=== PATIENT | male | born 1990 | race Caucasian/White ===

== ENCOUNTER 2019-11-15 20:06 | Emergency (ER) | payer OTHER, SELFPAY ==
[2019-11-15 20:14] VITALS: BP 147/87; PULSE 89; RESP 14; TEMP 37.1; O2SAT 97; BMI 22.9
[2019-11-15 20:29] VITALS: BP 148/83; PULSE 76; RESP 18; O2SAT 98
[2019-11-15 20:42] VITALS: BP 132/84; PULSE 88; RESP 18; O2SAT 99
--- NOTE | 2019-11-15 21:16 | HMH.EDDENT ---
ED Disposition Clinical Impression: Dental caries, Toothache Disposition: Home, Self-Care Condition on Discharge: Good Instructions: DI for Dental Pain Additional Instructions: see pcp for follow up and dentist Prescriptions: Minocycline HCl [Minocycline HCl 100mg Tab*] 100 mg PO BID #20 tab Transmission Status: Pending to [facility] #[id number] Referrals: Provider,Referral, [Primary Care Provider] - - Critical Care Critical Care Time: No Attestation: On 11/15/19, the high probability of a clinically significant, sudden or life threatening deterioration of the following system(s) required my full and direct attention, intervention and personal management. The time I documented below is in addition to time spent performing reported procedures but includes the following listed in this critical care notation. Medical Decision Making - Medical Records Medical records reviewed: Yes: I reviewed the patient's medical records. - Rajinder Inquiry Pt receiving controlled substance: No Vital Signs: 11/15/19 20:14 11/15/19 20:29 11/15/19 20:42 Temperature 98.7 F Temperature Source Oral Pulse Rate [Right Brachial] 89 76 88 Respiratory Rate 14 18 18 Blood Pressure [Right Arm] 147/87 H 148/83 H 132/84 Blood Pressure Mean [Right Arm] 107 104 100 Blood Pressure Source [Right Arm] Automatic Cuff Blood Pressure Position [Right Arm] Sitting 02 Sat by Pulse Oximetry 97 98 99 Oxygen Delivery Method Room Air Room Air Room Air Orders (Tests/Meds): ED MEDICATIONS Discontinued Medications Generic Name Dose Route Start Last Admin Trade Name Robertq PRN Reason Stop Dose Admin Ibuprofen 800 mg 11/15/19 21:01 11/15/19 21:04 Motrin 400mg Tablet PO 11/15/19 21:02 800 mg ONCE ONE Administration Lidocaine HCl 15 ml 11/15/19 20:45 11/15/19 20:48 Lidocaine 2% Viscous Solution 15ml Udc PO 11/15/19 20:46 15 ml ONCE ONE Administration Dental HPI - General Chief complaint: Dental/Oral Stated complaint: Fever, infected tooth Time Seen by Provider: 11/15/19 20:25 Mode of Arrival: Ambulatory Source of Information: Patient, Medical Record Limitations: No Limitations Description of Symptoms (Recalled from ER Triage Doc. by RN): PATIENT REPORTS A TOOTH ACHE IN HIS LEFT BOTTOM MOLAR THAT STARTED 4 DAYS AGO AND HIS NOW CAUSING HIM TO HAVE A HEADACHE. PATIENT REPORTS HE HAS NOT CONTACTED HIS DENTIST AT ALL ABOUT IT OR TAKEN ANY MEDICATION FOR THE TAM/PAIN. - History of Present Illness HPI Narrative: infected lt lower tooth with jaw pain and swelling Complaint: tooth pain Onset (ago): day(s) Severity: moderate Context: history of dental caries, poor dental care Treatment prior to arrival: none - Related Data Previous Rx's Medication Instructions Recorded cephALEXin [Keflex 500mg Cap] 500 mg PO TID #30 cap 04/27/19 Nabumetone 750 mg PO BID #20 tab 08/09/19 Minocycline HCl [Minocycline HCl 100 mg PO BID #20 tab 11/15/19 100mg Tab*] Allergies Allergy/AdvReac Type Severity Reaction Status Date / Time No Known Allergies Allergy Verified 04/27/19 22:01 [facility] History - Hepatitis A Screen Drug use history?: No High risk sexual behaviors?: No History of sexually transmitted infection?: No Currently employed?: No Childcare worker?: No Do you have indoor plumbing?: Yes Do you have electricity?: Yes Attestation statement:: This patient has been screened for Hepatitis A risk factors. I have reviewed the patient's past medical history: Yes - Social History Smoking Status: Current every day smoker # Packs/Day (cigarettes): 1 Alcohol Intake: never Alcohol Intake Frequency:: holidays/special occasions only Occupational Status: employed ROS Obtained: Yes All systems reviewed & no additional complaints - Constitutional Constitutional: Denies fever(s) - Eyes Eyes: Denies change in vision - ENT Ears, Nose, Mouth, and Throat: Reports as per HPI, Reports den
[2019-11-15 21:35] VITALS: BP 162/75; PULSE 84; RESP 14; TEMP 37.1; O2SAT 99
== END 2019-11-15 21:37 | disposition home or self-care (01) ==
PROVIDERS: Emergency Provider Emergency Medicine
DX: K02.9 Dental caries, unspecified (principal); F17.210 Nicotine dependence, cigarettes, uncomplicated
CPT/HCPCS: 99282

== ENCOUNTER 2021-06-28 10:48 | Emergency (ER) | payer OTHER, SELFPAY ==
[2021-06-28 10:49] VITALS: BP 130/82; PULSE 79; RESP 18; TEMP 36.9; O2SAT 99; BMI 22.2
--- NOTE | 2021-06-28 11:18 | HMH.EDGENADL ---
ED Disposition Clinical Impression: Corneal foreign body Qualifiers: Encounter type: initial encounter Laterality: right Qualified Code(s): T15.01XA - Foreign body in cornea, right eye, initial encounter Corneal rust ring Qualifiers: Laterality: right Qualified Code(s): H18.891 - Other specified disorders of cornea, right eye Disposition: Home, Self-Care Condition on Discharge: Good Instructions: DI for Corneal Foreign Body-Eye Additional Instructions: Use erythromycin ointment in your right eye 4 times a day. Rest in a dark room to relieve pain. [place] as prescribed for pain. Follow-up with [facility] on Wednesday, call Wednesday morning at 9 AM to make that appointment. Dr. Fisher, Dr. Francois, [place] [id number] Additional instructions for EYE PAIN or INJURY: Return to the emergency department if severe pain, loss of vision, pus drainage, severe swelling or redness of eyelids. Additional instructions for CONTROLLED SUBSTANCES: You have been prescribed a medication that is a controlled substance. Controlled substances include pain medications known as opiates and sedative nerve medications known as benzodiazepines. Tramadol, fioricet, and gabapentin are also controlled substances. Some common opiates include: Codeine (such as Tylenol #3) Hydrocodone (Vicodin, Lortab, Lorcet, Princeton) Oxycodone (Percocet, Percodan, Oxycodone, Oxy IR) Some common benzodiazepines include: Diazepam (Valium) Lorazepam (Ativan) Alprazolam (Xanax) Clonazepam (Klonopin) Oxazepam (Serax) All of these controlled substances are highly addictive and frequently abused. Misuse can and frequently does lead to addiction as well as overdose and . Medication should be stored in a locked cabinet or other secure storage unit. Do not store the medication in a motor vehicle. Short term supplies, 3 days or less, are prescribed because of the highly addictive nature of the medication. Any of the controlled substance medication NOT taken should be disposed of properly and NOT SAVED. The recommended method of disposing of unused medications is: Place the medicines in a sealable plastic bag. If the medicine is a solid, crush it or add water to dissolve it. Add something undesirable (cat litter, coffee grounds, etc.) Dispose of sealed bag in household trash Do not flush or pour unused medicines down a sink or drain. Controlled substances should not be shared, given away or sold. Because of the addictive nature and frequent abuse, these medications are sometimes stolen. These medications should be kept in a safe place where they cannot be stolen. Do not keep them in your car or purse. Lost or stolen prescriptions for controlled substances WILL NOT BE REFILLED in this emergency department, regardless of whether a police report was filed. Prescriptions: Hydrocod/Acet 5/325 mg [[place] 5/325mg tablet] 1 tab PO Q6HP PRN #10 tab PRN Reason: Pain Transmission Status: Sent to [id number] Referrals: Provider,Referral, MD [Primary Care Provider] - Forms: Work/School Release - Critical Care Critical Care Time: No Attestation: On 06/28/21, the high probability of a clinically significant, sudden or life threatening deterioration of the following system(s) required my full and direct attention, intervention and personal management. The time I documented below is in addition to time spent performing reported procedures but includes the following listed in this critical care notation. Medical Decision Making - Rajinder Inquiry Pt receiving controlled substance: Yes Rajinder was queried for this patient: Yes Risks and benefits of using a controlled substance: were discussed with pt by me Vital Signs: 06/28/21 10:49 Temperature 98.4 F Temperature Source Oral Pulse Rate [Right Radial] 79 Respiratory Rate 18 Blood Pressure [Right Arm] 130/
--- NOTE | 2021-06-28 11:28 | PC.NURSE ---
pt back from CT scan
[2021-06-28 11:42] VITALS: BP 128/79; PULSE 78; RESP 14; TEMP 36.7; O2SAT 97
== END 2021-06-28 11:42 | disposition home or self-care (01) ==
PROVIDERS: Emergency Provider Emergency Medicine
DX: T15.01XA Foreign body in cornea, right eye, initial encounter (principal); W45.8XXA Other foreign body or object entering through skin, initial encounter; Y92.69 Other specified industrial and construction area as the place of occurrence of the external cause; Y99.0 Civilian activity done for income or pay; F17.210 Nicotine dependence, cigarettes, uncomplicated
CPT/HCPCS: 65220; 99282

== ENCOUNTER 2021-12-11 08:47 | Emergency (ER) | payer MEDICAID, SELFPAY ==
[2021-12-11 08:48] VITALS: BP 139/74; PULSE 72; RESP 15; TEMP 36.8; O2SAT 99; BMI 25.1
[2021-12-11 08:55] VITALS: BMI 25.1
[2021-12-11 09:00] VITALS: BP 126/74; PULSE 68; O2SAT 98
--- NOTE | 2021-12-11 09:05 | HMH.EDGENADL ---
ED Disposition Clinical Impression: Viral syndrome Disposition: Home, Self-Care Condition on Discharge: Good Instructions: DI for Viral Syndrome, DI for COVID-19 (Suspected or Confirmed ) Additional Instructions: follow up as needed, return for worse Referrals: Provider,Referral, [Primary Care Provider] - - Critical Care Critical Care Time: No Attestation: On 12/11/21, the high probability of a clinically significant, sudden or life threatening deterioration of the following system(s) required my full and direct attention, intervention and personal management. The time I documented below is in addition to time spent performing reported procedures but includes the following listed in this critical care notation. Medical Decision Making - Medical Records Medical records reviewed: Yes: I reviewed the patient's medical records. - Rajinder Inquiry Pt receiving controlled substance: No Vital Signs: 12/11/21 08:48 12/11/21 09:00 12/11/21 09:30 Temperature 98.2 F Temperature Source Oral Pulse Rate 68 64 Pulse Rate [Right Radial] 72 Respiratory Rate 15 Blood Pressure 126/74 127/71 Blood Pressure [Right Arm] 139/74 Blood Pressure Mean 91 93 Blood Pressure Mean [Right Arm] 95 Blood Pressure Source [Right Arm] Automatic Cuff Blood Pressure Position [Right Arm] Sitting 02 Sat by Pulse Oximetry 99 98 97 Oxygen Delivery Method Room Air - Lab Data Lab Results 12/11/21 08:55: SARS-CoV-2 (PCR) Not detected, Influenza A Untype (PCR) Not detected, Influenza Type B (PCR) Not detected General Adult HPI - General Chief complaint: Weakness Stated complaint: bodyaches, feverish, nausea, TAM Time Seen by Provider: 12/11/21 09:05 Mode of Arrival: Ambulatory Limitations: No Limitations Description of Symptoms (Recalled from ER Triage Doc. by RN): Pt c/o bodyaches, fever, TAM and nausea for a few days. - History of Present Illness HPI narrative: flu like symptoms 3 days covid exposure Onset (ago): day(s) Radiation: non-radiation Severity: moderate Consistency: constant, intermittent Relieving factors: none Exacerbating factors: none - Related Data Previous Rx's Medication Instructions Recorded cephALEXin [Keflex 500mg Cap] 500 mg PO TID #30 cap 04/27/19 Nabumetone 750 mg PO BID #20 tab 08/09/19 Minocycline HCl [Minocycline HCl 100 mg PO BID #20 tab 11/15/19 100mg Tab*] Hydrocod/Acet 5/325 mg [[place] 1 tab PO Q6HP PRN #10 tab 06/28/21 5/325mg tablet] Allergies Allergy/AdvReac Type Severity Reaction Status Date / Time No Known Allergies Allergy Verified 04/27/19 22:01 [facility] History - Hepatitis A Screen Attestation statement:: This patient has been screened for Hepatitis A risk factors. - Social History Smoking Status: Current every day smoker # Packs/Day (cigarettes): 1 Alcohol Intake: never Alcohol Intake Frequency:: holidays/special occasions only Occupational Status: employed ROS Obtained: Yes All systems reviewed & no additional complaints Physical Exam - General General appearance: alert, in no apparent distress - Head Head exam: atraumatic, normocephalic - Eye Eye exam: Present: normal appearance, PERRL, EOMI - ENT ENT exam: Present: normal exam, normal oropharynx, mucous membranes moist - Neck Neck exam: Present: normal inspection, full ROM - Chest Chest inspection: Present: normal inspection, symmetric chest wall rise - Respiratory Respiratory exam: Present: normal lung sounds bilaterally. Absent: respiratory distress, wheezes - Cardiovascular Cardiovascular exam: Present: regular rate, normal rhythm. Absent: tachycardia - Abdominal Exam Abdominal exam: Present: soft. Absent: tenderness, guarding - Extremities Exam Extremities exam: Present: normal inspection, full ROM, normal capillary refill - Back Exam Back exam: Present: normal inspection, full ROM. Absent: tenderness - Neurological Exam Neurological ex
[2021-12-11 09:07] LABS: Coronavirus 19, PCR Not Detected (NotDetected); Influenza A, PCR Not Detected (NotDetected); Influenza B, PCR Not Detected (NotDetected)
[2021-12-11 09:30] VITALS: BP 127/71; PULSE 64; O2SAT 97
[2021-12-11 09:55] VITALS: BP 132/70; PULSE 79; RESP 16; TEMP 36.8; O2SAT 98
== END 2021-12-11 09:58 | disposition home or self-care (01) ==
PROVIDERS: Emergency Provider Emergency Medicine
DX: B34.9 Viral infection, unspecified (principal)
CPT/HCPCS: 99212; C9803; G0463; U0003; U0005

== ENCOUNTER 2022-02-14 18:27 | Emergency (ER) | payer MEDICAID, SELFPAY ==
[2022-02-14 18:28] VITALS: BP 133/85; PULSE 69; RESP 16; TEMP 36.8; O2SAT 99; BMI 24.3
--- NOTE | 2022-02-14 18:42 | CT_ITS ---
PROCEDURE INFORMATION: Exam: CT Abdomen And Pelvis With Contrast Exam date and time: 02/14/2022 6:55 PM Age: 32 years old Clinical indication: Abdominal pain; Generalized; Additional info: Rlq pain TECHNIQUE: Imaging protocol: Computed tomography of the abdomen and pelvis with contrast. Radiation optimization: All CT scans at this facility use at least one of these dose optimization techniques: automated exposure control; mA and/or kV adjustment per patient size (includes targeted exams where dose is matched to clinical indication); or iterative reconstruction. Contrast material: ISOVUE; Contrast volume: 75 ml; Contrast route: IV; COMPARISON: No relevant prior studies available. FINDINGS: Lungs: The visualized lung bases are clear. Pleural spaces: There are no pleural effusions. Heart: The visualized portions of the heart are unremarkable. There is no evidence of pericardial fluid collections. Liver: There is diffuse decrease in hepatic parenchymal density consistent with fatty infiltration. Gallbladder and bile ducts: The gallbladder is contracted/decompressed. Pancreas: The pancreas is normal. Spleen: The spleen is normal. Adrenal glands: The adrenal glands are normal. Kidneys and ureters: The kidneys are normal. Stomach and bowel: The stomach is normal. The duodenum is unremarkable. Lack of gastrointestinal contrast limits evaluation of bowel. The colon is normal. There is mild mucosal enhancement involving scattered loops of centrally located small bowel without dilatation. There is minor mural thickening. Findings are nonspecific but may reflect enteritis. Distal loops of small bowel are normal caliber. The distal ileum appears normal. Proximal jejunum appears normal. Appendix: A normal appendix is identified. Intraperitoneal space: There is no evidence of free intraperitoneal or pelvic fluid. No free air. Vasculature: There is no evidence of an aortic aneurysm. There are a few benign phleboliths in the pelvis. Lymph nodes: There is no evidence of pathologic adenopathy. Urinary bladder: The bladder is decompressed. Reproductive: The prostate and seminal vesicles are normal. Bones/joints: There is no evidence of acute fracture. There is very slight retrolisthesis of L5 on S1. Soft tissues: No significant soft tissue edema. IMPRESSION: 1. Mild mucosal enhancement involving scattered loops of centrally located small bowel with minor mural thickening and without dilatation. Findings are nonspecific but may reflect enteritis. Other inflammatory/infiltrative processes are not excluded. Correlate clinically. 2. Fatty hepatic infiltration.
--- NOTE | 2022-02-14 18:46 | HMH.EDABDPAI ---
Discharge Plan Disposition Patient Disposition: Home, Self-Care Condition: Fair Prescriptions Prescriptions: New ciprofloxacin HCl [Cipro] 500 mg tablet 500 mg PO BID Qty: 20 0RF metronidazole 500 mg tablet 500 mg PO BID 10 Days Qty: 20 0RF No Action nabumetone 750 MG tablet 750 mg PO BID Qty: 20 0RF cephalexin 500 MG capsule 500 mg PO TID Qty: 30 0RF minocycline 100 MG tablet 100 mg PO BID Qty: 20 0RF hydrocodone-acetaminophen 1 TAB tablet 1 tab PO Q6HP PRN (Reason: Pain) Qty: 10 0RF Referrals Follow up/Referrals: Provider,Referral, MD [Primary Care Provider] - See instructions Activity Restrictions/Add. Instructions Additional Instructions/Restrictions: Because you have blood in your stool, you will need a colonoscopy. I strongly advise you to follow-up with your primary care doctor and try to schedule a colonoscopy within the next month. Do this even if you stop feeling badly. Return to the emergency department if you feel worse in any way. Clinical Impressions Clinical Impression: Abdominal pain, Enteritis Instructions Patient Instructions: DI for Acute Abdominal Pain, Gastrointestinal Bleeding Discharge ED Provider: Ebonie Cuevas Abdominal Pain HPI General Chief Complaint: Abdominal Pain Stated Complaint: right side abd pain,blood in stool Time Seen by Provider: 02/14/22 18:46 Mode of Arrival: Ambulatory Source of Information: Patient Limitations: No Limitations Description of Symptoms (Recalled from ER Triage Doc. by RN): to ed per pvt car with c/o rlq pain radiating around to back x 2-3 days with 3 episodes of bright red blood in stool with black clots. pt denies any nausea, vomiting, fever, chills. History of Present Illness HPI narrative: The patient presents to the emergency department complaining of right lower quadrant pain for the last 2 or 3 days radiating to the back and associated with hematochezia without any nausea vomiting or diarrhea. He also denies fevers. Related Data Previous Rx's Medication Instructions Recorded cephalexin 500 mg capsule 500 mg PO TID #30 caps 04/27/19 nabumetone 750 mg tablet 750 mg PO BID #20 tabs 08/09/19 minocycline 100 mg tablet 100 mg PO BID #20 tabs 11/15/19 hydrocodone 5 mg-acetaminophen 325 1 tab PO Q6HP PRN Pain #10 tabs 06/28/21 mg tablet ciprofloxacin HCl 500 mg tablet 500 mg PO BID #20 tabs 02/14/22 (Cipro) metronidazole 500 mg tablet 500 mg PO BID 10 days #20 tabs 02/14/22 Allergies Allergy/AdvReac Type Severity Reaction Status Date / Time No Known Allergies Allergy Verified 04/27/19 22:01 [facility] Social History Smoking Status: Current every day smoker alcohol intake: never current occupational status: employed Travel in the last 8 weeks: None ROS Obtained: Yes All systems reviewed & no additional complaints except as documented Physical Exam General General appearance: alert and in no apparent distress Head Head exam: atraumatic, normocephalic and normal inspection Eye Eye exam: Present normal appearance, PERRL and EOMI; Absent scleral icterus ENT ENT exam: Present normal exam, normal oropharynx, mucous membranes moist, TM's normal bilaterally and normal external ear exam Neck Neck exam: Present normal inspection, full ROM and trachea midline; Absent meningismus or lymphadenopathy Chest Chest inspection: Present normal inspection and symmetric chest wall rise; Absent tenderness Respiratory Respiratory exam: Present normal lung sounds bilaterally; Absent respiratory distress Cardiovascular Cardiovascular exam: Present regular rate and normal rhythm; Absent JVD Abdominal Exam Abdominal exam: Present soft, tenderness (mild) and normal bowel sounds; Absent distention, guarding, heel tap sign, Lopez's sign, Rovsing's sign or tenderness at McBurney's Point Abdominal tenderness: Present RLQ Extremities Exam Extremities exam: Present n
[2022-02-14 18:54] LABS: Microscopic, Urine URINE MICROSCOPIC (MICROSCOPIC)
[2022-02-14 18:56] LABS: Appearance,Urine CLOUDY (Clear); Bilirubin,Urine Negative (Negative); Blood, Urine Negative (Negative); Color,Urine YELLOW (Yellow); Glucose,Urine (UA) Negative (Negative); Ketones,Urine Negative (Negative); Leukocyte Esterase,Urine Negative (Negative); Nitrate,Urine Negative (Negative); PH,Urine 6.5 (5.0-8.5); Protein,Urine Negative (Negative)
[2022-02-14 19:05] LABS: Basophils # 0.2 K/mm3 (0-0.2); Basophils % 2.3 % (0.1-2.0); Eosinophils # 0.2 K/mm3 (0.0-0.4); Eosinophils % 2.2 % (0.1-12.0); Hematocrit 43.2 % (42.0-52.0); Hemoglobin 14.7 g/dL (14.1-18.0); Lymphocytes # 2.5 K/mm3 (0.7-4.5); Lymphocytes % 32.9 % (10-50); Mean Corpuscular HGB Conc 34.1 g/dL (31.8-35.4); Mean Corpuscular Hemoglobin 30.4 pg (27.0-31.2); Mean Corpuscular Volume 89.2 fl (80-94); Mean Platelet Volume 8.1 fl (7.4-10.4); Monocytes # 0.7 K/mm3 (0.1-1.0); Monocytes % 8.6 % (1.7-9.3); Neutrophils # 4.1 K/mm3 (1.8-7.8); Platelet Count 245 K/mm3 (142-424); Red Blood Count 4.85 M/mm3 (4.60-6.20); Red Cell Distribution Width 13.9 % (11.5-17.5); White Blood Count 7.6 K/mm3 (4.8-10.8)
[2022-02-14 19:11] LABS: Bacteria,Urine Trace /lpf; WBC,Urine Occasional #/hpf (0-3)
[2022-02-14 19:15] LABS: Chloride 102 mmol/L (98-107); Potassium 4.1 mmoL/L (3.5-5.1); Sodium 143 mmol/L (136-145)
[2022-02-14 19:18] LABS: Alanine Aminotransferase 19 U/L (12-78); Albumin Level 4.9 g/dl (3.5-5.0); Albumin/Globulin Ratio 1.8 (1.1-1.8); Alkaline Phosphatase 54 U/L (38-126); Anion Gap 14.1 mEq/L (5-15); Aspartate Amino Transferase 31 U/L (17-59); Blood Urea Nitrogen 15 mg/dl (9-20); Carbon Dioxide 31 mmol/L (22.0-30.0); Creatinine Clearance Estimated 147 mL/min (50-200); Estimated Glomerular Filt Rate 114 ml/min (>60); GFR (African American) 137 ML/MIN (>60); Globulin 2.8 g/dL (1.3-3.2); Total Protein,Serum 7.7 g/dl (6.3-8.2)
[2022-02-14 19:19] LABS: Calcium 9.3 mg/dl (8.4-10.2); Glucose 92 mg/dl (74-100)
[2022-02-14 19:25] LABS: Bilirubin,Total < 0.1 mg/dl (0.2-1.3)
[2022-02-14 20:20] VITALS: BP 109/68; PULSE 64; RESP 16; TEMP 37.1; O2SAT 100
== END 2022-02-14 20:25 | disposition home or self-care (01) ==
PROVIDERS: Emergency Provider Emergency Medicine
DX: K52.9 Noninfective gastroenteritis and colitis, unspecified (principal)
CPT/HCPCS: 74177; 80053; 81001; 85025; 96374; 99284; Q9967

== ENCOUNTER 2023-01-15 07:24 | Emergency (ER) | payer BC, SELFPAY ==
[2023-01-15 07:25] VITALS: BP 138/83; PULSE 65; RESP 18; TEMP 36.9; O2SAT 98; BMI 25.8
--- NOTE | 2023-01-15 07:28 | HMH.EDGENADL ---
Discharge Plan Disposition Patient Disposition: Home, Self-Care Condition: Good Prescriptions Prescriptions: New oxycodone 5 mg tablet 5 mg PO Q8H PRN (Reason: pain) Qty: 10 0RF No Action nabumetone 750 MG tablet 750 mg PO BID Qty: 20 0RF cephalexin 500 MG capsule 500 mg PO TID Qty: 30 0RF minocycline 100 MG tablet 100 mg PO BID Qty: 20 0RF hydrocodone-acetaminophen 1 TAB tablet 1 tab PO Q6HP PRN (Reason: Pain) Qty: 10 0RF ciprofloxacin HCl [Cipro] 500 mg tablet 500 mg PO BID Qty: 20 0RF metronidazole 500 mg tablet 500 mg PO BID 10 Days Qty: 20 0RF Referrals Follow up/Referrals: Sammy Hutson MD [Primary Care Provider] - See instructions Activity Restrictions/Add. Instructions Additional Instructions/Restrictions: Please follow up with a dentist as soon as you can for further definitive managment of your dental pain. Below is the information for dental urgent care clinic at , if you choose to go there. Urgent Care Clinic Location:[place] [phone] [facility] is a walk-in clinic for patients, 14 years of age and older, needing immediate care due to dental pain and swelling. Clinic registration is open 7:45-10:30 am, Wednesday through Wednesday (closed on holidays and other dates-see below). Patients are seen on a first come, first served basis and may experience wait times. Services are only available for a select number of patients each day.? ? Patients are evaluated by expert dentists, and treated by dental students. If a patient's needs are too great or do not meet the educational needs of dental students, they may be referred to another dental clinic.? ? Payment Details A $128 evaluation fee, which includes an examination and X-ray, is due upon registration. An additional payment will be required at time of service depending on treatment provided and any insurance benefits.?? Clinical Impressions Clinical Impression: Acute pulpitis Instructions Patient Instructions: DI for Tooth Decay, DI for Dental Pain Discharge ED Provider: Yaron Laguna General Adult HPI General Chief complaint: Dental/Oral Stated complaint: mouth pain, possible infection Time Seen by Provider: 01/15/23 07:27 History of Present Illness HPI narrative: The patient presents with a chief complaint of severe tooth pain for about a month, which has worsened recently. The pain is located on the top of the mouth, predominantly on the left side. The patient reports difficulty opening their mouth and swallowing both liquids and solids due to the pain. The patient has tried various home remedies, including pain medication, warm salt water, and ice packs, without any relief. There is a history of swelling on the left side of the face and underneath the jaw. The patient denies any fever, chills, or recent antibiotic use. The patient has no known allergies and does use tobacco products. Related Data Previous Rx's Medication Instructions Recorded cephalexin 500 mg capsule 500 mg PO TID #30 caps 04/27/19 nabumetone 750 mg tablet 750 mg PO BID #20 tabs 08/09/19 minocycline 100 mg tablet 100 mg PO BID #20 tabs 11/15/19 hydrocodone 5 mg-acetaminophen 325 1 tab PO Q6HP PRN Pain #10 tabs 06/28/21 mg tablet ciprofloxacin HCl 500 mg tablet 500 mg PO BID #20 tabs 02/14/22 (Cipro) metronidazole 500 mg tablet 500 mg PO BID 10 days #20 tabs 02/14/22 oxycodone 5 mg tablet 5 mg PO Q8H PRN pain #10 tabs 01/15/23 Allergies Allergy/AdvReac Type Severity Reaction Status Date / Time No Known Allergies Allergy Verified 04/27/19 22:01 [facility] Disclaimer: The information contained in this section may have been updated after the patient was seen, as this information can be updated by other users. Social History Smoking Status: Current every day smoker alcohol intake: never current o
[2023-01-15 07:32] VITALS: BP 147/95; PULSE 54; O2SAT 97
--- NOTE | 2023-01-15 07:40 | PC.NURSE ---
Dr. Laguna at [facility]
--- NOTE | 2023-01-15 07:45 | CT_ITS ---
FINAL REPORT TECHNIQUE: Thin section axial CT images with coronal reformats were obtained through the neck after the administration of IV contrast. This study was performed with techniques to keep radiation doses as low as reasonably achievable (ALARA). Individualized dose reduction techniques using automated exposure control or adjustment of mA and/or kV according to the patient''s size were employed. CLINICAL HISTORY: mandibular dental pain, trismus COMPARISON: None FINDINGS: The paranasal sinuses are well aerated. There is no significant cervical mass or adenopathy. There is no localized inflammatory reaction or fluid collection. There is an unusual orientation of a left lower molar. There is no evidence of bone resorption. There is a rounded lucency in a left lower anterior molar, probably related to dental caries. No soft tissue abscess identified. IMPRESSION: No evidence of localized inflammatory reaction or fluid collection. Unusual orientation left lower molar. Rounded lucency left lower anterior molar. Reviewed, Interpreted and Dictated by Edouard Perez MD Transcribed by Enedelia Hankins Authenticated and . [facility]
[2023-01-15 08:10] LABS: Basophils % 0.3 % (0.1-2.0); Eosinophils # 0.2 K/mm3 (0.0-0.4); Eosinophils % 1.4 % (0.1-12.0); Hematocrit 44.1 % (42.0-52.0); Hemoglobin 14.4 g/dL (14.1-18.0); Lymphocytes # 1.8 K/mm3 (0.7-4.5); Lymphocytes % 15.1 % (10-50); Mean Corpuscular HGB Conc 32.6 g/dL (31.8-35.4); Mean Corpuscular Hemoglobin 29.4 pg (27.0-31.2); Mean Platelet Volume 8.1 fl (7.4-10.4); Monocytes # 0.5 K/mm3 (0.1-1.0); Monocytes % 4.5 % (1.7-9.3); Neutrophils # 9.4 K/mm3 (1.8-7.8); Neutrophils % 78.8 % (37.0-80.0); Platelet Count 240 K/mm3 (142-424); Red Blood Count 4.91 M/mm3 (4.60-6.20); Red Cell Distribution Width 13.7 % (11.5-17.5); White Blood Count 11.9 K/mm3 (4.8-10.8)
[2023-01-15 08:24] LABS: Alanine Aminotransferase 19 U/L (12-78); Albumin Level 4.8 g/dl (3.5-5.0); Albumin/Globulin Ratio 1.7 (1.1-1.8); Alkaline Phosphatase 57 U/L (38-126); Anion Gap 12.6 mEq/L (5-15); Aspartate Amino Transferase 23 U/L (17-59); Bilirubin,Total 0.7 mg/dl (0.2-1.3); Blood Urea Nitrogen 12 mg/dl (9-20); Calcium 9.1 mg/dl (8.4-10.2); Carbon Dioxide 27 mmol/L (22.0-30.0); Chloride 105 mmol/L (98-107); Creatinine Clearance Estimated 139 mL/min (50-200); Estimated Glomerular Filt Rate 99 ml/min (>60); GFR (African American) 120 ML/MIN (>60); Globulin 2.8 g/dL (1.3-3.2); Glucose 125 mg/dl (74-100); Potassium 3.6 mmoL/L (3.5-5.1); Sodium 141 mmol/L (136-145); Total Protein,Serum 7.6 g/dl (6.3-8.2)
[2023-01-15 08:34] VITALS: BP 135/63; PULSE 52; O2SAT 99
[2023-01-15 09:03] VITALS: BP 149/76; PULSE 42; O2SAT 98
--- NOTE | 2023-01-15 09:23 | PC.NURSE ---
MD at bedside d/t pt reporting severe pain
--- NOTE | 2023-01-15 09:43 | PC.NURSE ---
Checked with radiology for prelim on ct scan, prelim report given to Dr. Laguna
--- NOTE | 2023-01-15 10:23 | PC.NURSE ---
Rounded on pt. Provide with drink. No other needs voiced.
[2023-01-15 11:34] VITALS: BP 136/72; PULSE 70; RESP 16; TEMP 36.7; O2SAT 99
== END 2023-01-15 11:35 | disposition home or self-care (01) ==
PROVIDERS: Emergency Provider Emergency Medicine; PCP Family Medicine
DX: R22.0 Localized swelling, mass and lump, head (principal); R13.10 Dysphagia, unspecified; F17.200 Nicotine dependence, unspecified, uncomplicated
CPT/HCPCS: 70491; 80053; 83605; 85025; 96361; 96374; 99285; Q9967

== ENCOUNTER 2023-02-04 10:52 | Emergency (ER) | payer BC, SELFPAY ==
[2023-02-04 11:00] VITALS: BP 146/94; PULSE 69; RESP 22; TEMP 36.7; O2SAT 97; BMI 25.8
--- NOTE | 2023-02-04 11:09 | EXP.UTC ---
Discharge Plan Disposition Patient Disposition: Home, Self-Care Condition: Good Prescriptions Prescriptions: New amoxicillin-pot clavulanate 875-125 mg Tablet 1 tab PO Q12H Qty: 20 0RF ibuprofen [IBU] 800 mg tablet 800 mg PO TIDP PRN (Reason: Moderate Pain) Qty: 20 0RF No Action nabumetone 750 MG tablet 750 mg PO BID Qty: 20 0RF cephalexin 500 MG capsule 500 mg PO TID Qty: 30 0RF minocycline 100 MG tablet 100 mg PO BID Qty: 20 0RF hydrocodone-acetaminophen 1 TAB tablet 1 tab PO Q6HP PRN (Reason: Pain) Qty: 10 0RF ciprofloxacin HCl [Cipro] 500 mg tablet 500 mg PO BID Qty: 20 0RF metronidazole 500 mg tablet 500 mg PO BID 10 Days Qty: 20 0RF oxycodone 5 mg tablet 5 mg PO Q8H PRN (Reason: pain) Qty: 10 0RF Referrals Follow up/Referrals: Provider,Referral, MD [Primary Care Provider] - See instructions Activity Restrictions/Add. Instructions Additional Instructions/Restrictions: Call around and make appointment with dentist, this will continue to occur until you get these teeth removed or fixed Take medication as prescribed Follow up with your Family Doctor if needed Straight to ER if any life threatening symptoms Clinical Impressions Clinical Impression: Dental abscess Instructions Patient Instructions: Tooth Abscess, Amoxicillin and Clavulanic Acid, Ibuprofen Discharge ED Provider: Pastora Clifford [facility] [place] HPI General Stated complaint: tooth pain Mode of Arrival: Ambulatory Source of Information: Patient Limitations: No Limitations Time Seen by Provider: 02/04/23 11:09 Description of Symptoms (Recalled from Triage Doc. by RN): PATIENT C/O PAIN FROM ABSCESS LEFT TOOTH HEENT Symptoms (Recalled from RN notes): Yes Resp Symptoms (Recalled from RN notes): No Skin Symptoms (Recalled from RN notes): No MS Symptoms (Recalled from RN notes): No Functional Status (Recalled from RN notes): WNL History of Present Illness Provider Complaint: Patient states that he has been having pain and swelling in his left lower jaw area from abcessed tooth States that the teeth on his lower back on the bottom are broken and cracked and he has been trying to get into the dentist but hasnt had the money and for the last couple of days he has had pain and swelling in his left lower jaw area Related Data Previous Rx's Medication Instructions Recorded cephalexin 500 mg capsule 500 mg PO TID #30 caps 04/27/19 nabumetone 750 mg tablet 750 mg PO BID #20 tabs 08/09/19 minocycline 100 mg tablet 100 mg PO BID #20 tabs 11/15/19 hydrocodone 5 mg-acetaminophen 325 1 tab PO Q6HP PRN Pain #10 tabs 06/28/21 mg tablet ciprofloxacin HCl 500 mg tablet 500 mg PO BID #20 tabs 02/14/22 (Cipro) metronidazole 500 mg tablet 500 mg PO BID 10 days #20 tabs 02/14/22 oxycodone 5 mg tablet 5 mg PO Q8H PRN pain #10 tabs 01/15/23 amoxicillin 875 mg-potassium 1 tab PO Q12H #20 tabs 02/04/23 clavulanate 125 mg tablet ibuprofen 800 mg tablet (IBU) 800 mg PO TIDP PRN Moderate Pain 02/04/23 #20 tabs Allergies Allergy/AdvReac Type Severity Reaction Status Date / Time No Known Allergies Allergy Verified 04/27/19 22:01 Worker's Comp Is this a Worker's Comp case?: No [facility] Disclaimer: The information contained in this section may have been updated after the patient was seen, as this information can be updated by other users. Medical History (Updated 02/04/23 @ 11:15 by Pastora Clifford APRN) Seizures Social History Smoking Status: Current every day smoker alcohol intake: never current occupational status: employed Travel in the last 8 weeks: None ROS Obtained: Yes All systems reviewed & no additional complaints except as documented and Yes Systems reviewed as appropriate & no additional complaints except as documented Constitutional Constitutional: Reports system reviewed and no additional complaints, except as documented and Repor
[2023-02-04 11:11] VITALS: BP 146/94; PULSE 69; RESP 22; TEMP 36.7; O2SAT 97
== END 2023-02-04 11:25 | disposition home or self-care (01) ==
PROVIDERS: Emergency Provider Nurse Practitioner
DX: K04.7 Periapical abscess without sinus (principal); F17.210 Nicotine dependence, cigarettes, uncomplicated
CPT/HCPCS: 99204; 99212; G0463

== ENCOUNTER 2023-04-15 18:50 | Emergency (ER) | payer BC, SELFPAY ==
[2023-04-15 18:50] VITALS: BP 146/102; PULSE 88; RESP 16; TEMP 36.6; O2SAT 96; BMI 25.8
--- NOTE | 2023-04-15 19:43 | HMH.EDGENADL ---
Discharge Plan Disposition Patient Disposition: Home, Self-Care Condition: Good Chief Complaint: Skin/Abscess/Foreign Body Prescriptions Prescriptions: No Action nabumetone 750 MG tablet 750 mg PO BID Qty: 20 0RF amoxicillin-pot clavulanate 875-125 mg Tablet 1 tab PO Q12H Qty: 20 0RF ibuprofen [IBU] 800 mg tablet 800 mg PO TIDP PRN (Reason: Moderate Pain) Qty: 20 0RF cephalexin 500 MG capsule 500 mg PO TID Qty: 30 0RF minocycline 100 MG tablet 100 mg PO BID Qty: 20 0RF hydrocodone-acetaminophen 1 TAB tablet 1 tab PO Q6HP PRN (Reason: Pain) Qty: 10 0RF ciprofloxacin HCl [Cipro] 500 mg tablet 500 mg PO BID Qty: 20 0RF metronidazole 500 mg tablet 500 mg PO BID 10 Days Qty: 20 0RF oxycodone 5 mg tablet 5 mg PO Q8H PRN (Reason: pain) Qty: 10 0RF Referrals Follow up/Referrals: Provider,Referral, MD [Primary Care Provider] - See instructions Clinical Impressions Clinical Impression: Hemorrhoid Instructions Patient Instructions: DI for Hemorrhoids Discharge ED Provider: Dano Hernandez General Adult HPI General Chief complaint: Skin/Abscess/Foreign Body Stated complaint: hemorrhoids Time Seen by Provider: 04/15/23 19:27 Mode of Arrival: Ambulatory Source of Information: Patient Limitations: No Limitations Description of Symptoms (Recalled from ER Triage Doc. by RN): Presents to ED with c/o inflammed hemorrhoids x 3 days. Patient reports using hemorrhoid cream with no relief. 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 History of Present Illness HPI narrative: Patient has a PMHx significant for hemorrhoids who presents to the ED with complaints of hemorrhoids. Presents to ED with c/o inflammed hemorrhoids x 3 days. Patient reports using hemorrhoid cream with no relief. 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 Patient notes that he cannot sit on his bottom, has had decreased appetite, and difficulty passing stool Related Data Previous Rx's Medication Instructions Recorded cephalexin 500 mg capsule 500 mg PO TID #30 caps 04/27/19 nabumetone 750 mg tablet 750 mg PO BID #20 tabs 08/09/19 minocycline 100 mg tablet 100 mg PO BID #20 tabs 11/15/19 hydrocodone 5 mg-acetaminophen 325 1 tab PO Q6HP PRN Pain #10 tabs 06/28/21 mg tablet ciprofloxacin HCl 500 mg tablet 500 mg PO BID #20 tabs 02/14/22 (Cipro) metronidazole 500 mg tablet 500 mg PO BID 10 days #20 tabs 02/14/22 oxycodone 5 mg tablet 5 mg PO Q8H PRN pain #10 tabs 01/15/23 amoxicillin 875 mg-potassium 1 tab PO Q12H #20 tabs 02/04/23 clavulanate 125 mg tablet ibuprofen 800 mg tablet (IBU) 800 mg PO TIDP PRN Moderate Pain 02/04/23 #20 tabs Allergies Allergy/AdvReac Type Severity Reaction Status Date / Time No Known Allergies Allergy Verified 04/27/19 22:[address] [facility] Disclaimer: The information contained in this section may have been updated after the patient was seen, as this information can be updated by other users. Medical History (Updated 04/15/23 @ 21:06 by Dano Hernandez MD) Seizures Social History Smoking Status: Current every day smoker alcohol intake: never current occupational status: employed Travel in the last 8 weeks: None ROS Obtained: Yes All systems reviewed & no additional complaints except as documented Physical Exam General General appearance: alert and in no apparent distress Head Head exam: atraumatic, normocephalic and normal inspection Eye Eye exam: Present normal appearance, PERRL and EOMI; Absent scleral icterus or nystagmus ENT ENT exam: Present normal exam, mucous membranes moist and normal external ear exam Neck Neck exam: Present normal inspection, full ROM and trachea midline Chest Chest inspection: Present normal inspection and symmetric chest wall rise; Absent tenderness Respiratory Respiratory exam: Present normal lung sounds bilaterally; Absent respiratory distress, wheezes or accessory muscle use Cardiovascular Cardiovascular exa
[2023-04-15 20:01] VITALS: BP 134/79; PULSE 87; RESP 16; O2SAT 99
[2023-04-15 20:09] VITALS: BP 137/88; PULSE 79; RESP 16; O2SAT 99
[2023-04-15 20:32] VITALS: BP 131/86; PULSE 75; RESP 16; O2SAT 98
[2023-04-15 21:00] VITALS: BP 117/57; PULSE 84; RESP 17; O2SAT 96
[2023-04-15 21:16] VITALS: BP 117/57; PULSE 74; RESP 16; TEMP 36.6; O2SAT 97
== END 2023-04-15 21:18 | disposition home or self-care (01) ==
PROVIDERS: Emergency Provider Emergency Medicine
DX: K64.9 Unspecified hemorrhoids (principal); F17.210 Nicotine dependence, cigarettes, uncomplicated
CPT/HCPCS: 96372; 99283

== ENCOUNTER 2023-09-10 14:44 | Emergency (ER) | payer BC, SELFPAY ==
[2023-09-10 14:52] VITALS: BP 130/75; PULSE 114; RESP 20; TEMP 36.6; O2SAT 97; BMI 21.5
--- NOTE | 2023-09-10 14:55 | HMH.EDGENADL ---
Discharge Plan Disposition Patient Disposition: Home, Self-Care Condition: Good Prescriptions Prescriptions: New ondansetron 4 mg tablet,disintegrating 4 mg PO Q6H PRN (Reason: nausea and vomiting) Qty: 14 0RF No Action hydrocortisone [Anusol-HC] 2.5 % cream with perineal applicator 1 applic MI QD-BID PRN (Reason: hemorrhoids) Qty: 30 0RF lidocaine 5 % ointment 1 applic topical DAILY Qty: 30 0RF polyethylene glycol 3350 [Miralax] 17 gram/dose powder 17 g PO DAILY Qty: 119 0RF Referrals Follow up/Referrals: Provider,Referral, MD [Primary Care Provider] - See instructions Clinical Impressions Clinical Impression: Food poisoning Stand Alone Forms Stand Alone Forms: Work/School Release Instructions Patient Instructions: DI for Diarrhea and Traveler's Diarrhea -- Adult, Nausea and Vomiting-Adult Discharge ED Provider: Anjelica Gallo General Adult HPI General Chief complaint: Nausea/Vomiting/Diarrhea Stated complaint: vomiting, diarrea, sweats Time Seen by Provider: 09/10/23 14:54 History of Present Illness HPI narrative: Patient is an otherwise healthy 33-year-old male presenting due to nausea, vomiting and diarrhea. Patient's is present to help provide history. Patient states yesterday afternoon he ate a can of [employer] which was 8 years old. Since yesterday evening, he has had persistent vomiting and diarrhea. States he has had abdominal cramping, worse on the right side. States he has felt hot and has had chills but is unsure of fevers. States he was able to keep small amount of Gatorade down today. Related Data Previous Rx's Medication Instructions Recorded hydrocortisone 2.5 % topical cream 1 applic MI QD-BID PRN hemorrhoids 04/20/23 with perineal applicator #30 grams (Anusol-HC) lidocaine 5 % topical ointment 1 applic topical DAILY #30 grams 04/20/23 polyethylene glycol 3350 17 17 g PO DAILY #119 grams 04/20/23 gram/dose oral powder (Miralax) ondansetron 4 mg disintegrating 4 mg PO Q6H PRN nausea and 09/10/23 tablet vomiting #14 tabs Allergies Allergy/AdvReac Type Severity Reaction Status Date / Time No Known Allergies Allergy Verified 04/20/23 11:33 PFSH PFS Disclaimer: The information contained in this section may have been updated after the patient was seen, as this information can be updated by other users. Medical History Seizures Social History Smoking Status: Current every day smoker alcohol intake: never current occupational status: employed Travel in the last 8 weeks: None ROS Obtained: Yes All systems reviewed & no additional complaints except as documented Physical Exam General General appearance: alert and in no apparent distress Head Head exam: atraumatic, normocephalic and normal inspection Eye Eye exam: Present normal appearance, PERRL and EOMI ENT ENT exam: Present normal exam, normal oropharynx, mucous membranes moist, TM's normal bilaterally and normal external ear exam Neck Neck exam: Present normal inspection, full ROM and trachea midline; Absent meningismus or lymphadenopathy Chest Chest inspection: Present normal inspection and symmetric chest wall rise; Absent tenderness Respiratory Respiratory exam: Present normal lung sounds bilaterally; Absent respiratory distress Cardiovascular Cardiovascular exam: Present regular rate and normal rhythm; Absent JVD Abdominal Exam Abdominal exam: Present soft, tenderness and normal bowel sounds; Absent distention or guarding Abdominal tenderness: Present diffuse Extremities Exam Extremities exam: Present normal inspection, full ROM and normal capillary refill; Absent calf tenderness Back Exam Back exam: Present normal inspection; Absent tenderness Neurological Exam Neurological exam: Present alert and oriented X3 Psychiatric Psychiatric exam: Present normal affect and normal mood Skin Skin exam: Present warm, dry, intact and normal color Lymphatic Lymphatic Findings: no adenopathy Medical Decision Making Rajinder Inquiry Pt receiving controlled substance: No Vital Signs: 09/10/23 14:52 09/10/23 15:00 09/10/23 16:02 Temperature 97.8 F 97.8 F Temperature Source Oral Oral Pulse Rate 98 H 87 Pulse Rate [Left Radial] 114 H Respiratory Rate 20 20 Blood Pressure 137/93 H 119/62 Blood Pressure [Right Arm] 130/75 Blood Pressure Mean [Right Arm] 93 02 Sat by Pulse Oximetry 97 98 Oxygen Delivery Method Room Air Room Air Lab Data Lab Results 09/10/23 14:59: WBC 7.1, RBC 5.17, Hgb 16.0, Hct 47.4, MCV 91.6, MCH 30.9, MCHC 33.8, RDW 13.8, Plt Count 231, MPV 8.1, Neut % (Auto) 79.4, Lymph % (Auto) 12.7, Hickman % (Auto) 5.2, Eos % (Auto) 2.3, Baso % (Auto) 0.4, Neut # (Auto) 5.7, Lymph # (Auto) 0.9, Hickman # (Auto) 0.4, Eos # (Auto) 0.2, Baso # (Auto) 0.0, Sodium 138, Potassium 3.8, Chloride 101, Carbon Dioxide 31 H, Anion Gap 9.8, BUN 18, Creatinine 0.90, Estimated Creat Clear 114, Estimated GFR 98, Est GFR ( Amer) 119, Glucose 103 H, Calcium 9.3, Total Bilirubin 0.9, AST 25, ALT 17, Alkaline Phosphatase 50, Total Protein 7.2, Albumin 4.6, Globulin 2.6, Albumin/Globulin Ratio 1.8, Lipase 47 09/10/23 14:59 09/10/23 14:59 Orders (Tests/Meds): ED MEDICATIONS Discontinued Medications Generic Name Dose Route Start Last Admin Trade Name Freq PRN Reason Stop Dose Admin Lactated Ringer's 1,000 mls @ 999 mls/hr 09/10/23 14:54 09/10/23 15:06 Lactated Ringer's 1000 Ml Bag IV 09/10/23 15:54 999 mls/hr .Q1H1M ONE Administration Morphine Sulfate 4 mg 09/10/23 14:54 09/10/23 15:06 Morphine 4mg/Ml Syringe IV 09/10/23 14:55 4 mg ONCE ONE Administration Ondansetron HCl 4 mg 09/10/23 14:54 09/10/23 15:06 Ondansetron 4mg/2ml Vial IV 09/10/23 14:55 4 mg ONCE ONE Administration ORDERS Category Date Time Status CBC w/Auto Diff [Complete Blood Count Auto Diff] Stat Lab 09/10/23 14:59 Completed CMP [Comprehensive Metabolic Panel] Stat Lab 09/10/23 14:59 Completed Lipase Stat Lab 09/10/23 14:59 Completed Medical Decision Narrative: In summary, patient is otherwise healthy 33-year-old male, evaluated in the emergency department today due to vomiting and diarrhea. On arrival, patient is tachycardic but hemodynamically stable. On examination, patient has generalized diffuse abdominal pain. Differential diagnosis includes but is not limited to food poisoning, viral gastroenteritis, intra-abdominal infection. Patient given 1 L LR bolus, IV morphine, IV Zofran. Workup initiated including CBC, CMP, lipase. Labs independently interpreted by me, no significant results seen. On reevaluation, patient reports improvement in symptoms and is tolerating oral intake without difficulty. Given reassuring workup and history consistent with food poisoning, he is appropriate for discharge at this time. Prescription for Zofran provided. Patient counseled on home care, given strict return precautions and agreeable to plan. Additional history was provided by patient's . I considered the utility of obtaining abdominal imaging, but decided against this because this would not exchange consultant. I considered the utility of treatment with prescription for narcotics, but decided against this because risks outweigh benefits. I considered admitting the patient to the hospital for observation, and in shared decision-making with patient, decided on outpatient management. Critical Care Critical Care Time Critical Care Time: No
[2023-09-10 15:00] VITALS: BP 137/93; PULSE 98; O2SAT 98
[2023-09-10] MEDS: MORPHINE 4MG/ML SYRINGE 4 MG IV (15:06)
[2023-09-10] MEDS: LACTATED RINGERS 1000ML 1,000 ML 999 ML IV (15:06)
[2023-09-10] MEDS: ONDANSETRON 4MG/2ML VIAL 4 MG IV (15:06)
[2023-09-10 15:13] LABS: Basophils % 0.4 % (0.1-2.0); Eosinophils # 0.2 K/mm3 (0.0-0.4); Eosinophils % 2.3 % (0.1-12.0); Hematocrit 47.4 % (42.0-52.0); Lymphocytes # 0.9 K/mm3 (0.7-4.5); Lymphocytes % 12.7 % (10-50); Mean Corpuscular HGB Conc 33.8 g/dL (31.8-35.4); Mean Corpuscular Hemoglobin 30.9 pg (27.0-31.2); Mean Corpuscular Volume 91.6 fl (80-94); Mean Platelet Volume 8.1 fl (7.4-10.4); Monocytes # 0.4 K/mm3 (0.1-1.0); Monocytes % 5.2 % (1.7-9.3); Neutrophils # 5.7 K/mm3 (1.8-7.8); Neutrophils % 79.4 % (37.0-80.0); Platelet Count 231 K/mm3 (142-424); Red Blood Count 5.17 M/mm3 (4.60-6.20); Red Cell Distribution Width 13.8 % (11.5-17.5); White Blood Count 7.1 K/mm3 (4.8-10.8)
[2023-09-10 15:20] LABS: Alanine Aminotransferase 17 U/L (12-78); Albumin Level 4.6 g/dl (3.5-5.0); Albumin/Globulin Ratio 1.8 (1.1-1.8); Alkaline Phosphatase 50 U/L (38-126); Anion Gap 9.8 mEq/L (5-15); Aspartate Amino Transferase 25 U/L (17-59); Bilirubin,Total 0.9 mg/dl (0.2-1.3); Blood Urea Nitrogen 18 mg/dl (9-20); Calcium 9.3 mg/dl (8.4-10.2); Carbon Dioxide 31 mmol/L (22.0-30.0); Chloride 101 mmol/L (98-107); Creatinine Clearance Estimated 114 mL/min (50-200); Estimated Glomerular Filt Rate 98 ml/min (>60); GFR (African American) 119 ML/MIN (>60); Globulin 2.6 g/dL (1.3-3.2); Glucose 103 mg/dl (74-100); Lipase 47 U/L (23-300); Potassium 3.8 mmoL/L (3.5-5.1); Sodium 138 mmol/L (136-145); Total Protein,Serum 7.2 g/dl (6.3-8.2)
[2023-09-10 16:02] VITALS: BP 119/62; PULSE 87; RESP 20; TEMP 36.6; O2SAT 100
== END 2023-09-10 16:03 | disposition home or self-care (01) ==
PROVIDERS: Student in an Organized Health Care Education/Training Program; Emergency Provider Emergency Medicine
DX: A05.9 Bacterial foodborne intoxication, unspecified (principal); R10.84 Generalized abdominal pain; R11.2 Nausea with vomiting, unspecified; R19.7 Diarrhea, unspecified; F17.210 Nicotine dependence, cigarettes, uncomplicated
CPT/HCPCS: 80053; 83690; 85025; 96361; 96374; 96375; 99285; J2405

== ENCOUNTER 2023-09-27 15:09 | Emergency (ER) | payer BC, SELFPAY ==
[2023-09-27 15:10] VITALS: BP 150/90; PULSE 76; RESP 98; TEMP 36.8; O2SAT 98; BMI 21.5
--- NOTE | 2023-09-27 15:11 | ED_ITS ---
Discharge Plan Disposition Patient Disposition: Home, Self-Care Condition: Good Prescriptions Prescriptions: New amoxicillin-pot clavulanate 875-125 mg tablet 1 tab PO BID Qty: 20 0RF oxycodone 5 mg tablet 5 mg PO Q6 PRN (Reason: pain) 3 Days Qty: 12 0RF No Action hydrocortisone [Anusol-HC] 2.5 % cream with perineal applicator 1 applic MS QD-BID PRN (Reason: hemorrhoids) Qty: 30 0RF lidocaine 5 % ointment 1 applic topical DAILY Qty: 30 0RF polyethylene glycol 3350 [Miralax] 17 gram/dose powder 17 g PO DAILY Qty: 119 0RF ondansetron 4 mg tablet,disintegrating 4 mg PO Q6H PRN (Reason: nausea and vomiting) Qty: 14 0RF Referrals Follow up/Referrals: Provider,Referral, MD [Primary Care Provider] - See instructions Activity Restrictions/Add. Instructions Additional Instructions/Restrictions: Please call and establish an appointment with your dentist and follow-up closely. Clinical Impressions Clinical Impression: Pain, dental Discharge ED Provider: Chris Thurman General Adult HPI <MARGARITA Sharp - Last Filed: 09/27/23 15:28> General Stated complaint: jaw pain, h/a Time Seen by Provider: 09/27/23 15:11 History of Present Illness HPI narrative: Patient presents for evaluation of left upper tooth pain and possible abscess. Patient has long history of dental caries with multiple previous tooth extractions. Patient reports that he has had left upper incisor pain over the weekend. Patient denies fever nausea vomiting diarrhea but does endorse increasing swelling and pain. Related Data Previous Rx's Medication Instructions Recorded hydrocortisone 2.5 % topical cream 1 applic MS QD-BID PRN hemorrhoids 04/20/23 with perineal applicator #30 grams (Anusol-HC) lidocaine 5 % topical ointment 1 applic topical DAILY #30 grams 04/20/23 polyethylene glycol 3350 17 17 g PO DAILY #119 grams 04/20/23 gram/dose oral powder (Miralax) ondansetron 4 mg disintegrating 4 mg PO Q6H PRN nausea and 09/10/23 tablet vomiting #14 tabs amoxicillin 875 mg-potassium 1 tab PO BID #20 tabs 09/27/23 clavulanate 125 mg tablet oxycodone 5 mg tablet 5 mg PO Q6 PRN pain 3 days #12 tabs 09/27/23 Allergies Allergy/AdvReac Type Severity Reaction Status Date / Time No Known Allergies Allergy Verified 04/20/23 11:33 PFS <MARGARITA Sharp - Last Filed: 09/27/23 15:28> [facility] Disclaimer: The information contained in this section may have been updated after the patient was seen, as this information can be updated by other users. Medical History Seizures Social History Smoking Status: Current every day smoker alcohol intake: never current occupational status: employed Travel in the last 8 weeks: None <MARGARITA Sharp - Last Filed: 09/27/23 15:28> ROS Obtained: Yes Systems reviewed as appropriate & no additional complaints except as documented Physical Exam <MARGARITA Sharp - Last Filed: 09/27/23 15:28> General General appearance: alert Head Head exam: atraumatic Neck Neck exam: Present normal inspection and full ROM; Absent lymphadenopathy Respiratory Respiratory exam: Present normal lung sounds bilaterally Cardiovascular Cardiovascular exam: Present regular rate and normal rhythm Neurological Exam Neurological exam: Present alert Other Other exam information: Patient has extensive dental caries with numerous missing teeth. At the left upper incisor patient has gingival redness fullness above the tooth no discrete fluctuance but exquisitely tender to palpation. Medical Decision Making <MARGARITA Sharp - Last Filed: 09/27/23 15:28> Rajinder Inquiry Pt receiving controlled substance: Yes Rajinder was queried for this patient: No Risks and benefits of using a controlled substance: were discussed with pt by me Vital Signs: 09/27/23 15:10 09/27/23 15:56 Temperature 98.2 F 98.2 F Temperature Source Oral Oral Pulse Rate 66 Pulse Rate [Right] 76 Respiratory Rate 98 H 18 Blood Pressure 136/78 Blood Pressure [Right Arm] 150/90 H Blood Pressure Mean [Right Arm] 110 Blood Pressure Source Automatic Cuff Blood Pressure Source [Right Arm] Automatic Cuff Blood Pressure Position Sitting 02 Sat by Pulse Oximetry 98 Oxygen Delivery Method Room Air Room Air Orders (Tests/Meds): ED MEDICATIONS Discontinued Medications Generic Name Dose Route Start Last Admin Trade Name Freq PRN Reason Stop Dose Admin Amoxicillin/Clavulanate Potassium 1 each 09/27/23 15:19 09/27/23 15:52 Amoxicillin/Clavulanate Potassium 875/125mg Tablet PO 09/27/23 15:20 1 each ONCE ONE Administration Lidocaine HCl 15 ml 09/27/23 15:15 09/27/23 15:52 Lidocaine 2% Viscous Luz Marina 15ml Udc PO 09/27/23 15:16 15 ml ONCE ONE Administration Oxycodone HCl 5 mg 09/27/23 15:23 09/27/23 15:52 Oxycodone 5mg Immediate Release Tablet PO 09/27/23 15:24 5 mg ONCE ONE Administration Medical Decision Narrative: In summary patient is a 33-year-old male who presents to the emergency department for evaluation of tooth pain. Patient is hemodynamically stable upon arrival, afebrile. Physical exam is remarkable for extensive dental caries with redness and swelling above the left upper incisor. Differential diagnosis includes gingivitis versus abscess. Initial workup is deferred due to the fact the patient is normotensive nontoxic with no reports of fever and tolerating p.o. Initial interventions include dental ball first dose of Augmentin and opiate. Given this patient was evaluated by Dr. Thurman and via shared decision making patient was given a prescription for Augmentin and as the patient already has an established dentist he will follow-up closely with his dentist. <Chris Thurman, DO - Last Filed: 09/27/23 23:45> Vital Signs: 09/27/23 15:10 09/27/23 15:56 Temperature 98.2 F 98.2 F Temperature Source Oral Oral Pulse Rate 66 Pulse Rate [Right] 76 Respiratory Rate 98 H 18 Blood Pressure 136/78 Blood Pressure [Right Arm] 150/90 H Blood Pressure Mean [Right Arm] 110 Blood Pressure Source Automatic Cuff Blood Pressure Source [Right Arm] Automatic Cuff Blood Pressure Position Sitting 02 Sat by Pulse Oximetry 98 Oxygen Delivery Method Room Air Room Air Orders (Tests/Meds): ED MEDICATIONS Discontinued Medications Generic Name Dose Route Start Last Admin Trade Name Freq PRN Reason Stop Dose Admin Amoxicillin/Clavulanate Potassium 1 each 09/27/23 15:19 09/27/23 15:52 Amoxicillin/Clavulanate Potassium 875/125mg Tablet PO 09/27/23 15:20 1 each ONCE ONE Administration Lidocaine HCl 15 ml 09/27/23 15:15 09/27/23 15:52 Lidocaine 2% Viscous Luz Marina 15ml Udc PO 09/27/23 15:16 15 ml ONCE ONE Administration Oxycodone HCl 5 mg 09/27/23 15:23 09/27/23 15:52 Oxycodone 5mg Immediate Release Tablet PO 09/27/23 15:24 5 mg ONCE ONE Administration Medical Decision Narrative: In summary patient is a 33-year-old male who presents to the emergency department for evaluation of tooth pain. Patient is hemodynamically stable upon arrival, afebrile. Physical exam is remarkable for extensive dental caries with redness and swelling above the left upper incisor. Differential diagnosis includes gingivitis versus abscess. Initial workup is deferred due to the fact the patient is normotensive nontoxic with no reports of fever and tolerating p.o. Initial interventions include dental ball first dose of Augmentin and opiate. Given this patient was evaluated by Dr. Thurman and via shared decision making patient was given a prescription for Augmentin and as the patient already has an established dentist he will follow-up closely with his dentist. I was consulted by the MACRINA, and we discussed the complexity of the problems being addressed. I approved the treatment and management plan for this patient's care in the Emergency Department, thus performing a substantive portion of the medical decision making. Chris Thurman, DO Critical Care <MARGARITA Sharp - Last Filed: 09/27/23 15:28> Critical Care Time Critical Care Time: No
[2023-09-27] MEDS: AMOXICILLIN/CLAVULANATE POTASSIUM 875/125MG TABLET 1 EACH PO (15:52)
[2023-09-27] MEDS: LIDOCAINE 2% VISCOUS SOL 15ML UDC 15 ML PO (15:52)
[2023-09-27] MEDS: OXYCODONE 5MG IMMEDIATE RELEASE TABLET 5 MG PO (15:52)
[2023-09-27 15:56] VITALS: BP 136/78; PULSE 66; RESP 18; TEMP 36.8; O2SAT 99
== END 2023-09-27 15:57 | disposition home or self-care (01) ==
PROVIDERS: Emergency Provider Emergency Medicine
DX: K08.89 Other specified disorders of teeth and supporting structures (principal); F17.210 Nicotine dependence, cigarettes, uncomplicated
CPT/HCPCS: 99283

== ENCOUNTER 2023-10-13 13:39 | Emergency (ER) | payer BC, SELFPAY ==
[2023-10-13 13:53] VITALS: BP 135/93; PULSE 82; RESP 20; TEMP 36.8; O2SAT 100; BMI 22.9
--- NOTE | 2023-10-13 13:57 | ED_ITS ---
Discharge Plan Disposition Patient Disposition: Home, Self-Care Condition: Good Prescriptions Prescriptions: New amoxicillin-pot clavulanate 875-125 mg tablet 1 tab PO BID Qty: 20 0RF naproxen 500 mg tablet 500 mg PO BID Qty: 20 0RF oxycodone 5 mg tablet 5 mg PO Q8H PRN (Reason: pain) Qty: 10 0RF No Action hydrocortisone [Anusol-HC] 2.5 % cream with perineal applicator 1 applic MT QD-BID PRN (Reason: hemorrhoids) Qty: 30 0RF lidocaine 5 % ointment 1 applic topical DAILY Qty: 30 0RF polyethylene glycol 3350 [Miralax] 17 gram/dose powder 17 g PO DAILY Qty: 119 0RF ondansetron 4 mg tablet,disintegrating 4 mg PO Q6H PRN (Reason: nausea and vomiting) Qty: 14 0RF amoxicillin-pot clavulanate 875-125 mg tablet 1 tab PO BID Qty: 20 0RF oxycodone 5 mg tablet 5 mg PO Q6 PRN (Reason: pain) 3 Days Qty: 12 0RF Referrals Follow up/Referrals: Provider,Referral, MD [Primary Care Provider] - See instructions Activity Restrictions/Add. Instructions Additional Instructions/Restrictions: You were evaluated in the emergency department today. It is imperative that you follow-up with a dentist to soon as possible, as your symptoms will continue to get worse until then. supervisor [employer] your prescription for antibiotics and take the full course as prescribed. We also provided you with pain medications to have as needed for significant pain. Return to the emergency department for new or worsening symptoms, such as difficulty swallowing, difficulty breathing, or other concerns. Clinical Impressions Clinical Impression: Dental caries, Pain, dental Instructions Patient Instructions: DI for Dental Pain Discharge ED Provider: Anjelica Gallo General Adult HPI General Chief complaint: Dental/Oral Stated complaint: pain and swelling on right side of face Time Seen by Provider: 10/13/23 13:53 History of Present Illness HPI narrative: This patient is a 33-year-old male with a history of poor dentition with multiple dental caries, prior dental abscesses, and seizures presenting to the emergency department for evaluation with concern for dental pain. Patient reports he was evaluated here 09/27/2023 for dental pain and was told to follow- up with dentistry. He was given amoxicillin as well as pain medication. He notes that since going home, he has not been able to get in with a dentist because the soonest that he can be seen is next month. He notes that he has been taking the amoxicillin as needed since then. At 2 AM, the tooth pain got much worse and woke him up from sleep. He denies any fevers, chest pain, shortness of breath, difficulty swallowing, drooling, or other concerns. Related Data Previous Rx's Medication Instructions Recorded hydrocortisone 2.5 % topical cream 1 applic MT QD-BID PRN hemorrhoids 04/20/23 with perineal applicator #30 grams (Anusol-HC) lidocaine 5 % topical ointment 1 applic topical DAILY #30 grams 04/20/23 polyethylene glycol 3350 17 17 g PO DAILY #119 grams 04/20/23 gram/dose oral powder (Miralax) ondansetron 4 mg disintegrating 4 mg PO Q6H PRN nausea and 09/10/23 tablet vomiting #14 tabs amoxicillin 875 mg-potassium 1 tab PO BID #20 tabs 09/27/23 clavulanate 125 mg tablet oxycodone 5 mg tablet 5 mg PO Q6 PRN pain 3 days #12 tabs 09/27/23 amoxicillin 875 mg-potassium 1 tab PO BID #20 tabs 10/13/23 clavulanate 125 mg tablet naproxen 500 mg tablet 500 mg PO BID #20 tabs 10/13/23 oxycodone 5 mg tablet 5 mg PO Q8H PRN pain #10 tabs 10/13/23 Allergies Allergy/AdvReac Type Severity Reaction Status Date / Time No Known Allergies Allergy Verified 04/20/23 11:33 [facility] Disclaimer: The information contained in this section may have been updated after the patient was seen, as this information can be updated by other users. Medical History Seizures Social History Smoking Status: Never smoker alcohol intake: never current occupational status: employed Travel in the last 8 weeks: None ROS Obtained: Yes All systems reviewed & no additional complaints except as documented Physical Exam General General appearance: alert and in no apparent distress Head Head exam: atraumatic and normocephalic Eye Eye exam: Present normal appearance, PERRL and EOMI ENT ENT exam: Present mucous membranes moist, normal external ear exam and other (Poor dentition with multiple dental caries. Tenderness to palpation of the right upper and lower teeth. No drooling, trismus, sublingual swelling, or significant facial swelling) Neck Neck exam: Present normal inspection, full ROM and trachea midline; Absent tenderness Chest Chest inspection: Present normal inspection and symmetric chest wall rise; Absent tenderness Respiratory Respiratory exam: Present normal lung sounds bilaterally; Absent respiratory distress, wheezes, stridor or accessory muscle use Cardiovascular Cardiovascular exam: Present regular rate and normal rhythm Abdominal Exam Abdominal exam: Present soft; Absent distention, tenderness or guarding Extremities Exam Extremities exam: Present normal inspection, full ROM and normal capillary refill; Absent tenderness or edema Back Exam Back exam: Present normal inspection and full ROM; Absent tenderness Neurological Exam Neurological exam: Present alert, oriented X3, CN II-XII intact and normal gait; Absent motor sensory deficit Psychiatric Psychiatric exam: Present normal affect and normal mood Skin Skin exam: Present warm and dry Medical Decision Making Medical Records Medical records reviewed: Yes I reviewed the patient's medical records. Rajinder Inquiry Pt receiving controlled substance: Yes Rajinder was queried for this patient: Yes Risks and benefits of using a controlled substance: were discussed with pt by me Vital Signs: 10/13/23 13:53 10/13/23 14:39 Temperature 98.2 F 99.1 F Temperature Source Oral Pulse Rate 68 Pulse Rate [Left Radial] 82 Respiratory Rate 20 16 Blood Pressure 120/80 Blood Pressure [Right Arm] 135/93 H Blood Pressure Mean [Right Arm] 107 Blood Pressure Source Automatic Cuff Blood Pressure Position Sitting 02 Sat by Pulse Oximetry 100 Oxygen Delivery Method Room Air Room Air Lab Data Lab results reviewed: Yes I reviewed the patient's lab results. Orders (Tests/Meds): ED MEDICATIONS Discontinued Medications Generic Name Dose Route Start Last Admin Trade Name Freq PRN Reason Stop Dose Admin Acetaminophen 1,000 mg 10/13/23 13:56 10/13/23 14:10 Acetaminophen 500mg Tab PO 10/13/23 13:57 1,000 mg ONCE ONE Administration Amoxicillin/Clavulanate Potassium 1 each 10/13/23 13:56 10/13/23 14:10 Amoxicillin/Clavulanate Potassium 875/125mg Tablet PO 10/13/23 13:57 1 each ONCE ONE Administration Benzocaine/Butamben/Tetracaine HCl 1 gm 10/13/23 14:04 10/13/23 14:21 Tetracaine/Benzocaine/Butamben 56 Gm [place] TP 10/13/23 14:05 1 gm ONCE ONE Administration Ketorolac Tromethamine 30 mg 10/13/23 13:56 10/13/23 14:10 Ketorolac 30mg/Ml Vial IM 10/13/23 13:57 30 mg ONCE ONE Administration Lidocaine HCl 15 ml 10/13/23 14:04 10/13/23 14:21 Lidocaine 2% Viscous Luz [place] 15ml Udc PO 10/13/23 14:05 15 ml ONCE ONE Administration Medical Decision Narrative: In summary, this patient is a 33-year-old male presenting to the Emergency Department for evaluation of dental pain. Differential diagnoses considered include but are not limited to dental caries, dental fracture, dental abscess, facial cellulitis. Ruling out the most morbid conditions drove assessment. I reviewed patient's past medical records and noted evaluation here 09/27/2023 for similar symptoms as per HPI. He was discharged home with amoxicillin/colonic acid as well as oxycodone. On exam, the patient is well-appearing. He has no drooling, trismus, significant facial swelling, or other concerns. 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 I advised him that definitive management is following up with dentistry, and he must do this for further evaluation and management to prevent this from worsening. He was given oral Augmentin, IM Toradol presented medic improvement. He was also given dental balls. At this time, feel it is appropriate for discharge and close follow-up with dentistry and strict return precautions. He was given prescriptions for Augmentin, a brief course of oxycodone to have as needed for severe breakthrough pain, and he was given strict return precautions. Critical Care Critical Care Time Critical Care Time: No
[2023-10-13] MEDS: KETOROLAC 30MG/ML VIAL 30 MG IM (14:10)
[2023-10-13] MEDS: AMOXICILLIN/CLAVULANATE POTASSIUM 875/125MG TABLET 1 EACH PO (14:10)
[2023-10-13] MEDS: ACETAMINOPHEN 500MG TAB 1000 MG PO (14:10)
[2023-10-13] MEDS: LIDOCAINE 2% VISCOUS SOL 15ML UDC 15 ML PO (14:21)
[2023-10-13] MEDS: TETRACAINE/BENZOCAINE/BUTAMBEN 56 GM SPRAY TP (14:21)
[2023-10-13 14:39] VITALS: BP 120/80; PULSE 68; RESP 16; TEMP 37.3; O2SAT 99
== END 2023-10-13 14:39 | disposition home or self-care (01) ==
PROVIDERS: Emergency Provider Emergency Medicine
DX: R22.0 Localized swelling, mass and lump, head (principal); K02.9 Dental caries, unspecified; K08.89 Other specified disorders of teeth and supporting structures
CPT/HCPCS: 96372; 99283

== ENCOUNTER 2023-12-09 16:37 | Emergency (ER) | payer BC, SELFPAY ==
[2023-12-09 16:38] VITALS: BP 134/94; PULSE 78; RESP 17; TEMP 37.2; O2SAT 99; BMI 21.5
[2023-12-09 16:41] VITALS: BP 134/94; PULSE 78; O2SAT 98
--- NOTE | 2023-12-09 16:41 | PC.NURSE ---
DR UREÑA AT BEDSIDE
--- NOTE | 2023-12-09 16:45 | ED_ITS ---
Discharge Plan Disposition Patient Disposition: Home, Self-Care Condition: Good Prescriptions Prescriptions: New amoxicillin-pot clavulanate 875-125 mg tablet 1 tab PO BID Qty: 20 0RF naproxen 500 mg tablet 500 mg PO BID Qty: 20 0RF hydrocodone-acetaminophen 5-325 mg tablet 1 tab PO Q8H PRN (Reason: pain) Qty: 10 0RF No Action hydrocortisone [Anusol-HC] 2.5 % cream with perineal applicator 1 applic [place] QD-BID PRN (Reason: hemorrhoids) Qty: 30 0RF lidocaine 5 % ointment 1 applic topical DAILY Qty: 30 0RF polyethylene glycol 3350 [Miralax] 17 gram/dose powder 17 g PO DAILY Qty: 119 0RF ondansetron 4 mg tablet,disintegrating 4 mg PO Q6H PRN (Reason: nausea and vomiting) Qty: 14 0RF amoxicillin-pot clavulanate 875-125 mg tablet 1 tab PO BID Qty: 20 0RF oxycodone 5 mg tablet 5 mg PO Q6 PRN (Reason: pain) 3 Days Qty: 12 0RF amoxicillin-pot clavulanate 875-125 mg tablet 1 tab PO BID Qty: 20 0RF naproxen 500 mg tablet 500 mg PO BID Qty: 20 0RF oxycodone 5 mg tablet 5 mg PO Q8H PRN (Reason: pain) Qty: 10 0RF Activity Restrictions/Add. Instructions Additional Instructions/Restrictions: You were evaluated in the emergency department today. Please merchandise pickup/receiving associate your prescriptions at the pharmacy and take them as needed for symptoms. Follow-up right away with a dentist. Return to the emergency department for new or worsening symptoms. Clinical Impressions Clinical Impression: Acute pulpitis Stand Alone Forms Stand Alone Forms: Work/School Release Instructions Patient Instructions: DI for Acute Pain -- Adult, DI for Dental Pain Print Language Print Language: Bulgarian Discharge ED Provider: Anjelica Gallo General Adult HPI General Chief complaint: PAIN Stated complaint: Pain in left side of head Time Seen by Provider: 12/09/23 16:43 History of Present Illness HPI narrative: This patient is a 33-year-old male with a history of previous dental abscesses and extensive dental caries presenting to the emergency department for evaluation with concern for dental pain, left-sided facial pain, and left headache. This all started today. He thinks is all coming from his teeth, but he was not sure. He states that he has some light sensitivity, but everything starting on the left side where his left face is mildly swollen. He has fracture to the left side. No vision changes, numbness, tingling, unilateral weakness, true fevers, stridor, dysphagia, or other concerns. Related Data Previous Rx's ?Medication ?Instructions ?Recorded hydrocortisone 2.5 % topical cream 1 applic [place] QD-BID PRN hemorrhoids 04/20/23 with perineal applicator #30 grams (Anusol-HC) lidocaine 5 % topical ointment 1 applic topical DAILY #30 grams 04/20/23 polyethylene glycol 3350 17 17 g PO DAILY #119 grams 04/20/23 gram/dose oral powder (Miralax) ondansetron 4 mg disintegrating 4 mg PO Q6H PRN nausea and 09/10/23 tablet vomiting #14 tabs amoxicillin 875 mg-potassium 1 tab PO BID #20 tabs 09/27/23 clavulanate 125 mg tablet oxycodone 5 mg tablet 5 mg PO Q6 PRN pain 3 days #12 tabs 09/27/23 amoxicillin 875 mg-potassium 1 tab PO BID #20 tabs 10/13/23 clavulanate 125 mg tablet naproxen 500 mg tablet 500 mg PO BID #20 tabs 10/13/23 oxycodone 5 mg tablet 5 mg PO Q8H PRN pain #10 tabs 10/13/23 amoxicillin 875 mg-potassium 1 tab PO BID #20 tabs 12/09/23 clavulanate 125 mg tablet hydrocodone 5 mg-acetaminophen 325 1 tab PO Q8H PRN pain #10 tabs 12/09/23 mg tablet naproxen 500 mg tablet 500 mg PO BID #20 tabs 12/09/23 Allergies Allergy/AdvReac Type Severity Reaction Status Date / Time No Known Allergies Allergy Verified 04/20/23 11:33 [facility] Disclaimer: The information contained in this section may have been updated after the patient was seen, as this information can be updated by other users. Medical History Seizures Social History Smoking Status: Current every day smoker alcohol intake: never current occupational status: employed Travel in the last 8 weeks: None ROS Obtained: Yes All systems reviewed & no additional complaints except as documented Physical Exam General General appearance: alert and in no apparent distress Head Head exam: atraumatic and other (Mild left maxillary swelling with no palpable abscesses or induration.) Eye Eye exam: Present normal appearance, PERRL and EOMI ENT ENT exam: Present mucous membranes moist, normal external ear exam and other (Extensive dental caries and dental fractures with tenderness to palpation of teeth 9-11, which are fractured and decaying. No significant subungual swelling, drooling, trismus, or other concerns. No palpable abscesses.) Neck Neck exam: Present normal inspection, full ROM and trachea midline; Absent tenderness Chest Chest inspection: Present normal inspection and symmetric chest wall rise; Absent tenderness Respiratory Respiratory exam: Present normal lung sounds bilaterally; Absent respiratory distress, wheezes, stridor or accessory muscle use Cardiovascular Cardiovascular exam: Present regular rate and normal rhythm Abdominal Exam Abdominal exam: Present soft; Absent distention, tenderness or guarding Extremities Exam Extremities exam: Present normal inspection, full ROM and normal capillary refill; Absent tenderness or edema Back Exam Back exam: Present normal inspection and full ROM; Absent tenderness Neurological Exam Neurological exam: Present alert, oriented X3, CN II-XII intact and normal gait; Absent motor sensory deficit Psychiatric Psychiatric exam: Present normal affect and normal mood Skin Skin exam: Present warm and dry Medical Decision Making Medical Records Medical records reviewed: Yes I reviewed the patient's medical records. Rajinder Inquiry Pt receiving controlled substance: Yes Rajinder was queried for this patient: Yes Risks and benefits of using a controlled substance: were discussed with pt by me Vital Signs: 12/09/23 16:38 12/09/23 16:41 12/09/23 17:01 Temperature 98.9 F Temperature Source Oral Pulse Rate 78 74 Pulse Rate [Right] 78 Respiratory Rate 17 Blood Pressure 134/94 H 154/80 H Blood Pressure [Right Arm] 134/94 H Blood Pressure Mean [Right Arm] 107 Blood Pressure Source [Right Arm] Automatic Cuff 02 Sat by Pulse Oximetry 99 98 97 Oxygen Delivery Method Room Air Room Air Room Air 12/09/23 17:31 Temperature Temperature Source Pulse Rate 76 Pulse Rate [Right] Respiratory Rate Blood Pressure 124/71 Blood Pressure [Right Arm] Blood Pressure Mean [Right Arm] Blood Pressure Source [Right Arm] 02 Sat by Pulse Oximetry 98 Oxygen Delivery Method Room Air Lab Data Lab results reviewed: Yes I reviewed the patient's lab results. Orders (Tests/Meds): ED MEDICATIONS Discontinued Medications Generic Name Dose Route Start Last Admin Trade Name Patrice PRN Reason Stop Dose Admin Acetaminophen 1,000 mg 12/09/23 16:43 12/09/23 16:57 Acetaminophen 500mg Tab PO 12/09/23 16:44 1,000 mg ONCE ONE Administration Amoxicillin/Clavulanate Potassium 1 each 12/09/23 16:44 12/09/23 16:56 Amoxicillin/Clavulanate Potassium 875/125mg Tablet PO 12/09/23 16:45 1 each ONCE ONE Administration Ketorolac Tromethamine 30 mg 12/09/23 16:43 12/09/23 16:57 Ketorolac 30mg/Ml Vial IM 12/09/23 16:44 30 mg ONCE ONE Administration Lidocaine HCl 15 ml 12/09/23 16:44 12/09/23 16:58 Lidocaine 2% Viscous Luz [place] 15ml Udc PO 12/09/23 16:45 15 ml ONCE ONE Administration Metoclopramide HCl 5 mg 12/09/23 16:43 12/09/23 16:56 Metoclopramide 10mg Tablet PO 12/09/23 16:44 5 mg ONCE ONE Administration Medical Decision Narrative: In summary, this patient is a 33-year-old male presenting to the Emergency Department for evaluation of headache dental pain,, facial pain and swelling. Differential diagnoses considered include but are not limited to dental abscess, dental fracture, dental decay, facial abscess, cluster headache, migraine, tension headache. Ruling out the most morbid conditions drove assessment. It should be noted patient's history includes extensive dental caries which are not at goal therapy. This complicates all aspects of care by increasing patient's risk for morbidity. I reviewed patient's past medical records and noted previous evaluations for sim ilar issues in the past. On exam, the patient is very uncomfortable appearing, holding the left side of his face. He has extensive dental caries and fractures with tenderness of his left upper teeth. He also has mild facial swelling with no palpable induration or abscesses. No drooling, trismus, or sublingual swelling. Initially, I do not feel labs or imaging are indicated, as I feel he likely has dental pain related to his extensive dental decay. He was given oral Tylenol, Augmentin, Reglan, IM Toradol, and topical lidocaine dental balls. This did not significantly improve his pain, so I had discussion with him and via shared decision-making patient was agreeable to do a CT scan without contrast, but he does not want IV contrast and does not want to lab evaluation obtained. IV con trast would not definitively show abscess quite as well, but we will proceed and respect the patient's wishes. Ultimately patient ended up stating that he felt a lot better and did not want to do CT scan at all. Given this, I advised that he follow-up very closely with a dentist right away for further evaluation and management. He was given prescriptions for [place], naproxen, and Augmentin given his significant dental decay, pain, and swelling. He was given instructions for very close follow-up and strict return precautions. He was discharged after all questions were answered. Critical Care Critical Care Time Critical Care Time: No
[2023-12-09] MEDS: METOCLOPRAMIDE 10MG TABLET 5 MG PO (16:56)
[2023-12-09] MEDS: AMOXICILLIN/CLAVULANATE POTASSIUM 875/125MG TABLET 1 EACH PO (16:56)
[2023-12-09] MEDS: ACETAMINOPHEN 500MG TAB 1000 MG PO (16:57)
[2023-12-09] MEDS: KETOROLAC 30MG/ML VIAL 30 MG IM (16:57)
[2023-12-09] MEDS: LIDOCAINE 2% VISCOUS SOL 15ML UDC 15 ML PO (16:58)
[2023-12-09 17:01] VITALS: BP 154/80; PULSE 74; O2SAT 97
[2023-12-09 17:31] VITALS: BP 124/71; PULSE 76; O2SAT 98
[2023-12-09 18:00] VITALS: BP 132/88; PULSE 75; RESP 18; TEMP 37.2; O2SAT 98
== END 2023-12-09 18:02 | disposition home or self-care (01) ==
PROVIDERS: Emergency Provider Emergency Medicine
DX: K04.01 Reversible pulpitis (principal); R22.0 Localized swelling, mass and lump, head; F17.210 Nicotine dependence, cigarettes, uncomplicated
CPT/HCPCS: 96372; 99283; J1885

== ENCOUNTER 2024-01-31 10:08 | Emergency (ER) | payer BC, SELFPAY ==
[2024-01-31 10:09] VITALS: BP 120/83; PULSE 85; RESP 18; TEMP 36.4; O2SAT 99; BMI 21.5
[2024-01-31] MEDS: AMOXICILLIN/CLAVULANATE POTASSIUM 875/125MG TABLET 1 EACH PO (10:45)
[2024-01-31] MEDS: ACETAMINOPHEN 500MG TAB 1000 MG PO (10:45)
[2024-01-31] MEDS: KETOROLAC 30MG/ML VIAL 30 MG IM (10:45)
[2024-01-31] MEDS: LIDOCAINE 2% VISCOUS SOL 15ML UDC 15 ML PO (10:45)
[2024-01-31 11:02] VITALS: BP 127/87; PULSE 61; RESP 16; TEMP 36.6; O2SAT 98
--- NOTE | 2024-01-31 16:29 | ED_ITS ---
Discharge Plan Disposition Patient Disposition: Home, Self-Care Condition: Good Prescriptions Prescriptions: New amoxicillin-pot clavulanate 875-125 mg tablet 1 tab PO BID Qty: 20 0RF naproxen 500 mg tablet 500 mg PO BID Qty: 20 0RF hydrocodone-acetaminophen 5-325 mg tablet 1 tab PO Q8H PRN (Reason: pain) Qty: 12 0RF No Action hydrocortisone [Anusol-HC] 2.5 % cream with perineal applicator 1 applic SC QD-BID PRN (Reason: hemorrhoids) Qty: 30 0RF lidocaine 5 % ointment 1 applic topical DAILY Qty: 30 0RF polyethylene glycol 3350 [Miralax] 17 gram/dose powder 17 g PO DAILY Qty: 119 0RF methylprednisolone [Medrol (Reynaldo)] 4 mg tablets,dose pack See Rx Instructions PO PER PKG DIR Qty: 21 0RF Rx Instructions: PO PER PKG DIR for 6 days ondansetron 4 mg tablet,disintegrating 4 mg PO Q6H PRN (Reason: nausea and vomiting) Qty: 14 0RF amoxicillin-pot clavulanate 875-125 mg tablet 1 tab PO BID Qty: 20 0RF oxycodone 5 mg tablet 5 mg PO Q6 PRN (Reason: pain) 3 Days Qty: 12 0RF amoxicillin-pot clavulanate 875-125 mg tablet 1 tab PO BID Qty: 20 0RF naproxen 500 mg tablet 500 mg PO BID Qty: 20 0RF hydrocodone-acetaminophen 5-325 mg tablet 1 tab PO Q8H PRN (Reason: pain) Qty: 10 0RF amoxicillin-pot clavulanate 875-125 mg tablet 1 tab PO BID Qty: 20 0RF naproxen 500 mg tablet 500 mg PO BID Qty: 20 0RF oxycodone 5 mg tablet 5 mg PO Q8H PRN (Reason: pain) Qty: 10 0RF prednisone 50 mg tablet 50 mg PO DAILY 5 Days Qty: 5 0RF Referrals Follow up/Referrals: Provider,Referral, MD [Primary Care Provider] - See instructions Activity Restrictions/Add. Instructions Additional Instructions/Restrictions: You were evaluated in the emergency department today. 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 Take the full course of antibiotics as prescribed. Do not drive or operate heavy machinery while taking narcotic pain medication. It is very important that you follow-up with a dentist right away for definitive management of your teeth, otherwise infection will likely keep recurring. Return to the emergency department for new or worsening symptoms such as difficulty swallowing, difficulty breathing, or inability to open your mouth. Clinical Impressions Clinical Impression: Pain, dental, Cellulitis of face Stand Alone Forms Stand Alone Forms: Work/School Release Instructions Patient Instructions: DI for Tooth Decay, DI for Dental Pain Print Language Print Language: Urdu Discharge ED Provider: Anjelica Gallo General Adult HPI General Chief complaint: Dental/Oral Stated complaint: abcessed tooth L side Time Seen by Provider: 01/31/24 10:32 Mode of Arrival: Ambulatory Source of Information: Patient Limitations: No Limitations Description of Symptoms (Recalled from ER Triage Doc. by RN): Patient reports left sided tooth pain and swelling. States it started yesterday and just hasn't gotten any better. History of Present Illness HPI narrative: This patient is a 34-year-old male with a history of extensive dental caries and poor dentition with recurrent oral infections presenting with concern for left- sided tooth pain and facial swelling. He states it started yesterday and has not gotten any better. On medical record review, he is been seen multiple times in the ED for issues like this and prescribed antibiotics. He denies any fevers, difficulty breathing, difficulty swallowing, difficulty opening his mouth, or other concerns. Related Data Previous Rx's ?Medication ?Instructions ?Recorded hydrocortisone 2.5 % topical cream 1 applic SC QD-BID PRN hemorrhoids 04/20/23 with perineal applicator #30 grams (Anusol-HC) lidocaine 5 % topical ointment 1 applic topical DAILY #30 grams 04/20/23 polyethylene glycol 3350 17 17 g PO DAILY #119 grams 04/20/23 gram/dose oral powder (Miralax) ondansetron 4 mg disintegrating 4 mg PO Q6H PRN nausea and 09/10/23 tablet vomiting #14 tabs amoxicillin 875 mg-potassium 1 tab PO BID #20 tabs 09/27/23 clavulanate 125 mg tablet oxycodone 5 mg tablet 5 mg PO Q6 PRN pain 3 days #12 tabs 09/27/23 amoxicillin 875 mg-potassium 1 tab PO BID #20 tabs 10/13/23 clavulanate 125 mg tablet naproxen 500 mg tablet 500 mg PO BID #20 tabs 10/13/23 oxycodone 5 mg tablet 5 mg PO Q8H PRN pain #10 tabs 10/13/23 amoxicillin 875 mg-potassium 1 tab PO BID #20 tabs 12/09/23 clavulanate 125 mg tablet hydrocodone 5 mg-acetaminophen 325 1 tab PO Q8H PRN pain #10 tabs 12/09/23 mg tablet naproxen 500 mg tablet 500 mg PO BID #20 tabs 12/09/23 prednisone 50 mg tablet 50 mg PO DAILY 5 days #5 tabs 01/17/24 methylprednisolone 4 mg tablets in See Rx Instructions PO PER PKG DIR 01/25/24 a dose pack (Medrol (Reynaldo)) #21 tabs amoxicillin 875 mg-potassium 1 tab PO BID #20 tabs 01/31/24 clavulanate 125 mg tablet hydrocodone 5 mg-acetaminophen 325 1 tab PO Q8H PRN pain #12 tabs 01/31/24 mg tablet naproxen 500 mg tablet 500 mg PO BID #20 tabs 01/31/24 Allergies Allergy/AdvReac Type Severity Reaction Status Date / Time No Known Allergies Allergy Verified 01/25/24 08:58 [facility] Disclaimer: The information contained in this section may have been updated after the patient was seen, as this information can be updated by other users. Medical History Seizures Social History Smoking Status: Current every day smoker alcohol intake: never current occupational status: employed Travel in the last 8 weeks: None ROS Obtained: Yes All systems reviewed & no additional complaints except as documented Physical Exam General General appearance: alert and in no apparent distress Head Head exam: normocephalic and other (Minimal left-sided facial swelling ) Eye Eye exam: Present normal appearance, PERRL and EOMI ENT ENT exam: Present mucous membranes moist, normal external ear exam and other (Very poor dentition with multiple areas of decay and dental caries and multiple fractured teeth. No appreciable superficial abscesses that are amenable to drainage. No drooling, trismus, exudates, or other concerns. Uvula is midline.) Neck Neck exam: Present normal inspection, full ROM and trachea midline; Absent tenderness, meningismus or lymphadenopathy Chest Chest inspection: Present normal inspection and symmetric chest wall rise; Absent tenderness Respiratory Respiratory exam: Present normal lung sounds bilaterally; Absent respiratory distress, wheezes, stridor or accessory muscle use Cardiovascular Cardiovascular exam: Present regular rate and normal rhythm Abdominal Exam Abdominal exam: Present soft; Absent distention, tenderness or guarding Extremities Exam Extremities exam: Present normal inspection, full ROM and normal capillary refill; Absent tenderness or edema Back Exam Back exam: Present normal inspection and full ROM; Absent tenderness Neurological Exam Neurological exam: Present alert, oriented X3, CN II-XII intact and normal gait; Absent motor sensory deficit Psychiatric Psychiatric exam: Present normal affect and normal mood Skin Skin exam: Present warm and dry Medical Decision Making Medical Records Medical records reviewed: Yes I reviewed the patient's medical records. Rajinder Inquiry Pt receiving controlled substance: Yes Rajinder was queried for this patient: Yes Risks and benefits of using a controlled substance: were discussed with pt by me Vital Signs: 01/31/24 10:01/31/24 11:02 Temperature 97.6 F 97.9 F Temperature Source Oral Oral Pulse Rate 61 Pulse Rate [Radial] 85 Respiratory Rate 18 16 Blood Pressure 127/87 Blood Pressure [Right Arm] 120/83 Blood Pressure Mean [Right Arm] 95 Blood Pressure Source Automatic Cuff Blood Pressure Source [Right Arm] Automatic Cuff Blood Pressure Position Sitting Blood Pressure Position [Right Arm] Sitting 02 Sat by Pulse Oximetry 99 Oxygen Delivery Method Room Air Room Air Lab Data Lab results reviewed: Yes I reviewed the patient's lab results. Orders (Tests/Meds): ED MEDICATIONS Discontinued Medications Generic Name Dose Route Start Last Admin Trade Name Patrice PRN Reason Stop Dose Admin Acetaminophen 1,000 mg 01/31/24 10:38 01/31/24 10:45 Acetaminophen 500mg Tab PO 01/31/24 10:39 1,000 mg ONCE ONE Administration Amoxicillin/Clavulanate Potassium 1 each 01/31/24 10:38 01/31/24 10:45 Amoxicillin/Clavulanate Potassium 875/125mg Tablet PO 01/31/24 10:39 1 each ONCE ONE Administration Ketorolac Tromethamine 30 mg 01/31/24 10:38 01/31/24 10:45 Ketorolac 30mg/Ml Vial IM 01/31/24 10:39 30 mg ONCE ONE Administration Lidocaine HCl 15 ml 01/31/24 10:38 01/31/24 10:45 Lidocaine 2% Viscous Luz Marina 15ml Udc PO 01/31/24 10:39 15 ml ONCE ONE Administration Medical Decision Narrative: In summary, this patient is a 34-year-old man presenting to the Emergency Department for evaluation of dental pain and left-sided facial swelling. Differential diagnoses considered include but are not limited to abscess, cellulitis, dental caries, pulpitis, facial abscess. Ruling out the most morbid conditions drove assessment. On exam, the patient is well-appearing with no alarm findings or symptoms concerning for Abiel's angina or deep soft tissue space infection. No appreciable abscesses that are amenable to drainage. Vital signs are normal on cardiac telemetry. Ultimately, I feel he is appropriate for discharge home with prescription for Augmentin as well as brief course of pain medication to treat his pain. Advised that he follow-up very closely right away with a dentist for further evaluation and management of this recurrent infection, as it would likely keep recurring until he has his teeth managed. He expressed understanding and agreement. He was discharged in stable condition after all questions were answered with very strict return precautions. Critical Care Critical Care Time Critical Care Time: No
== END 2024-01-31 11:03 | disposition home or self-care (01) ==
LOC: ER 10:46
PROVIDERS: Emergency Provider Emergency Medicine
DX: L03.211 Cellulitis of face (principal); K02.9 Dental caries, unspecified
CPT/HCPCS: 96372; 99283; J1885

== ENCOUNTER 2024-07-01 11:35 | Emergency (ER) | payer SELFPAY ==
[2024-07-01 11:37] VITALS: BP 133/87; PULSE 85; RESP 14; TEMP 36.8; O2SAT 99; BMI 22.9
--- NOTE | 2024-07-01 12:05 | ED_ITS ---
<Statement entered by Trevon Suarez MD - 07/02/24 14:26> I was consulted by the MACRINA, and we discussed the complexity of the problems being addressed. I approved the treatment and management plan for this patient's care in the emergency department, thus performing a substantive portion of the medical decision making. Trevon Suraez MD, FAHAD, FACEP Discharge Plan Disposition Patient Disposition: Home, Self-Care Condition: Good Prescriptions Prescriptions: New penicillin V potassium 500 mg tablet 500 mg PO BID 10 Days Qty: 20 0RF ibuprofen 600 mg tablet 600 mg PO TID Qty: 21 0RF Referrals Follow up/Referrals: Titi Gibson DO [Staff Physician] - See instructions Provider,MD Anna [Primary Care Provider] - See instructions Activity Restrictions/Add. Instructions Additional Instructions/Restrictions: Increase fluid intake. Take acetaminophen and ibuprofen. Follow-up with dentistry as scheduled. Return to the ED for worsening of condition. Clinical Impressions Clinical Impression: Chronic dental pain Instructions Patient Instructions: DI for Dental Pain Print Language Print Language: Sinhala Discharge ED Provider: Trevon Suarez General Adult HPI General Chief complaint: Dental/Oral Stated complaint: swelling tooth pain Time Seen by Provider: 07/01/24 12:01 Mode of Arrival: Ambulatory Source of Information: Patient Limitations: No Limitations Description of Symptoms (Recalled from ER Triage Doc. by RN): pt presents to ED with c/o right sided dental pain. pt reports symptoms ongoing for the past 3 days. pt reports that he has had issues with his teeth in the past. Related Data Previous Rx's ?Medication ?Instructions ?Recorded ibuprofen 600 mg tablet 600 mg PO TID #21 tabs 07/01/24 penicillin V potassium 500 mg 500 mg PO BID 10 days #20 tabs 07/01/24 tablet Allergies Allergy/AdvReac Type Severity Reaction Status Date / Time No Known Allergies Allergy Verified 01/25/24 08:58 [facility] Disclaimer: The information contained in this section may have been updated after the patient was seen, as this information can be updated by other users. Medical History Seizures Social History Smoking Status: Current every day smoker alcohol intake: never current occupational status: employed Travel in the last 8 weeks: None Have you lived/traveled outside [place] in past 30 days?: No Contact w/someone who lives/traveled outside US past 30 days?: No Exposure to someone with infectious disease in past 14 days?: No Do you have a fever (greater than 100.4 F or 38 C)?: No Have you tested positive for COVID-19: No Exposed to someone with COVID-19 in past 14 days?: No Do you have a sore throat?: No Do you have a cough?: No Do you have any weakness?: No Do you have any diarrhea?: No Are you experiencing any unusual bleeding?: No Do you have any muscle aches/pain?: No Do you have any abdominal pain?: No Are you experiencing loss of taste or smell?: No Other Medical History Have you received the Flu Vaccine for this season: No Have you received the Pneumonia Vaccine: No ROS Obtained: Yes Systems reviewed as appropriate & no additional complaints except as documented Physical Exam General General appearance: alert and in no apparent distress Head Head exam: atraumatic, normocephalic and other (Multiple decaying teeth, multiple missing teeth, dental tenderness on right upper molar area) Eye Eye exam: Present normal appearance and PERRL ENT ENT exam: Present normal exam Neck Neck exam: Present normal inspection Chest Chest inspection: Present normal inspection and symmetric chest wall rise; Absent tenderness Respiratory Respiratory exam: Present normal lung sounds bilaterally Cardiovascular Cardiovascular exam: Present regular rate Abdominal Exam Abdominal exam: Present soft and normal bowel sounds; Absent tenderness Extremities Exam Extremities exam: Present normal inspection and full ROM Back Exam Back exam: Present normal inspection and full ROM Neurological Exam Neurological exam: Present alert and oriented X3 Psychiatric Psychiatric exam: Present normal affect and normal mood Skin Skin exam: Present warm and dry Medical Decision Making Medical Records Screening: Per USPSTF and CDC recommendations, given the prevalence of disease in our region, it is our hospital?s policy to screen for HIV and viral Hepatitis for all patients aged 18 and over and those with ongoing risk factors. Rajinder Inquiry Pt receiving controlled substance: No Rajinder was queried for this patient: No Vital Signs: 07/01/24 11:37 07/01/24 12:18 Temperature 98.3 F 98.0 F Temperature Source Oral Pulse Rate 85 Pulse Rate [Left Radial] 85 Respiratory Rate 14 16 Blood Pressure 133/87 Blood Pressure [Right Arm] 133/87 Blood Pressure Mean [Right Arm] 102 02 Sat by Pulse Oximetry 99 Oxygen Delivery Method Room Air Orders (Tests/Meds): ED MEDICATIONS Discontinued Medications Generic Name Dose Route Start Last Admin Trade Name Patrice PRN Reason Stop Dose Admin Oxycodone HCl 5 mg 07/01/24 12:05 07/01/24 12:17 Oxycodone 5mg Immediate Release Tablet PO 07/31/24 12:04 5 mg Q4HP PRN Administration Severe Pain (7-10) Medical Decision Narrative: In summary, patient is a 34-year-old male with no significant PMHx who presents to the ED for dental pain and mild right facial edema x 3 days. Patient has history of poor dental health, states he is scheduled to see dentist but not for 1 month. He has not taken any medication for symptomatic relief prior to arrival. Upon initial exam, patient is alert, oriented and cooperative. Patient is hemodynamically stable. Physical exam remarkable for very poor dental health, dental tenderness generalized, worse on the right upper molar aspect. Multiple missing teeth. Multiple decaying teeth. Differential diagnosis includes gingivitis, dental abscess, periapical abscess, among others Patient symptomatically managed with oxycodone tablet. Upon repeat evaluation, patient had an acceptable resolution of pain. Discussed with patient that we can start him on an oral antibiotic, he will need to follow-up with dentistry sooner. Patient states he will call to make a sooner appointment. Advised him to complete the entirety of the course of antibiotics. Advised him to take the ibuprofen that we have sent [id number]. Critical Care Critical Care Time Critical Care Time: No
[2024-07-01] MEDS: OXYCODONE 5MG IMMEDIATE RELEASE TABLET 5 MG PO (12:17)
[2024-07-01 12:18] VITALS: BP 133/87; PULSE 85; RESP 16; TEMP 36.7
== END 2024-07-01 12:19 | disposition home or self-care (01) ==
LOC: ER 12:13
PROVIDERS: Emergency Provider Student in an Organized Health Care Education/Training Program
DX: K08.9 Disorder of teeth and supporting structures, unspecified (principal); K08.89 Other specified disorders of teeth and supporting structures; Z72.0 Tobacco use
CPT/HCPCS: 99283

== ENCOUNTER 2025-02-08 08:57 | Emergency (ER) | payer SELFPAY ==
[2025-02-08 09:00] VITALS: BP 137/77; PULSE 85; RESP 16; TEMP 36.7; O2SAT 98; BMI 20.7
--- NOTE | 2025-02-08 09:08 | XR_ITS ---
FINAL REPORT CLINICAL HISTORY: trauma ring finger, pt finger got smashed yesterday FINDINGS: AP, oblique, and lateral views of the left hand were obtained. There is no prior exam for comparison. There is no acute fracture of the left hand. The joint spaces are preserved. There is a metallic BB within the distal third metacarpal shaft. Tiny radiopaque density is noted within the volar soft tissues of the second digit at the level of the middle phalanx concerning for foreign body. IMPRESSION: No acute osseous abnormality of the left hand. Foreign body volar soft tissue second digit. BB within the third metacarpal. Reviewed, Interpreted and Dictated by Aura Ornelas MD Transcribed by Enedelia Hankins Authenticated and [facility]
--- NOTE | 2025-02-08 09:09 | [facility].EDGENADL ---
Discharge Plan Disposition Patient Disposition: Home, Self-Care Prescriptions Prescriptions: New cephalexin 500 mg capsule 500 mg PO Q6H 5 Days Qty: 20 0RF No Action penicillin V potassium 500 mg tablet 500 mg PO BID 10 Days Qty: 20 0RF ibuprofen 600 mg tablet 600 mg PO TID Qty: 21 0RF Referrals Follow up/Referrals: Provider,Referral, [Primary Care Provider, Medical] - See instructions Activity Restrictions/Add. Instructions Additional Instructions/Restrictions: At this time it was felt you are safe to be discharged home. If new or worsening symptoms please do not hesitate to return the emergency department. I did not see any broken bone on your x-ray, I will call you if the radiologist disagrees. Otherwise please take antibiotics as prescribed. The wound should heal on its own within 10 to 14 days. Please follow-up with your family doctor early next week to make sure things are headed in the right direction. Wear your splint for comfort but keep your finger in extension so your wound will heal as it is over your knuckle. Clinical Impressions Clinical Impression: Finger contusion, Wound, open, finger Print Language Print Language: Mongolian Discharge ED Provider: Zhao Arias General Adult HPI General Chief complaint: Extremity Injury, Upper Stated complaint: AO-02/07/2025, injury/swelling to left hand Time Seen by Provider: 02/08/25 09:00 History of Present Illness HPI narrative: In summary patient is a 35-year-old left handed male with no pertinent past medical history presents emergency department for evaluation of trauma to his left hand. Patient was working on an engine when he had an axial load to his left PIP joint. He had a resultant wound over the dorsal aspect of his PIP joint, has had progressive pain and swelling and presents here for continued evaluation. No other traumatic complaints at this time. Related Data Previous Rx's ?Medication ?Instructions ?Recorded ibuprofen 600 mg tablet 600 mg PO TID #21 tabs 07/01/24 penicillin V potassium 500 mg 500 mg PO BID 10 days #20 tabs 07/01/24 tablet cephalexin 500 mg capsule 500 mg PO Q6H finger wound 5 days 02/08/25 #20 caps Allergies Allergy/AdvReac Type Severity Reaction Status Date / Time No Known Allergies Allergy Verified 01/25/24 08:58 [facility] Disclaimer: The information contained in this section may have been updated after the patient was seen, as this information can be updated by other users. Medical History Seizures Family History (Updated 02/08/25 @ 09:06 by Yesi Jacob RN) Other No significant family history Social History Smoking Status: Current every day smoker alcohol intake: never current occupational status: employed Travel in the last 8 weeks?: None Have you lived/traveled outside US in past 30 days?: No Contact w/someone who lives/traveled outside US past 30 days?: No Exposure to someone with infectious disease in past 14 days?: No Do you have a fever (greater than 100.4 F or 38 C)?: No Have you tested positive for COVID-19?: No Exposed to someone with COVID-19 in past 14 days?: No Do you have a sore throat?: No Do you have a cough?: No Do you have any weakness?: No Do you have any diarrhea?: No Are you experiencing any unusual bleeding?: No Do you have any muscle aches/pain?: No Do you have any abdominal pain?: No Are you experiencing loss of taste or smell?: No Other Medical History Have you received the Flu Vaccine for this season: No Have you received the Pneumonia Vaccine: No ROS Obtained: Yes Systems reviewed as appropriate & no additional complaints except as documented Physical Exam General General appearance: alert Comment: Appearing uncomfortable in bed Head Head exam: atraumatic and normocephalic Eye Eye exam: Present PERRL and EOMI ENT ENT exam: Present mucous membranes moist Neck Neck exam: Present normal inspection Chest Chest inspection: Present normal inspection and symmetric chest wall rise Respiratory Respiratory exam: Absent respiratory distress Cardiovascular Cardiovascular exam: Present regular rate Extremities Exam Extremities exam: Present other (Linear wound over the dorsal left PIP joint that is hemostatic. Circumferential swelling from the PIP joint distally. There is a ring approximately. Patient is distally neurovascularly intact in the left ring finger. No other trauma to remainder of digits of left hand.) Neurological Exam Neurological exam: Present alert Psychiatric Psychiatric exam: Present normal affect Skin Skin exam: Present warm and dry Medical Decision Making Medical Records Screening: Per USPSTF and CDC recommendations, given the prevalence of disease in our region, it is our hospital?s policy to screen for HIV and viral Hepatitis for all patients aged 18 and over and those with ongoing risk factors. Rajinder Inquiry Pt receiving controlled substance: No Vital Signs: 02/08/25 09:00 02/08/25 09:00 Temperature 98.1 F 98.1 F Temperature Source Oral Pulse Rate 85 Pulse Rate [Right] 85 Respiratory Rate 16 16 Blood Pressure 137/77 Blood Pressure [Right Arm] 137/77 Blood Pressure Mean [Right Arm] 97 02 Sat by Pulse Oximetry 98 98 Orders (Tests/Meds): ED MEDICATIONS Discontinued Medications Generic Name Dose Route Start Last Admin Trade Name Freq PRN Reason Stop Dose Admin Acetaminophen 1,000 mg 02/08/25 09:34 02/08/25 09:39 Acetaminophen 500mg Tab PO 02/08/25 09:35 1,000 mg ONCE ONE Administration Ibuprofen 800 mg 02/08/25 09:34 02/08/25 09:40 Ibuprofen 400 Mg Tablet PO 02/08/25 09:35 800 mg ONCE ONE Administration Ondansetron HCl 4 mg 02/08/25 09:33 02/08/25 09:39 Ondansetron 4mg Odt SL 02/08/25 09:34 4 mg ONCE ONE Administration Tetanus/Reduced Diphtheria/Acell Pertussis 0.5 ml 02/08/25 09:08 02/08/25 09:23 Tet/Diphth/Pert-Adult 0.5ml Syringe IM 02/08/25 09:09 0.5 ml .ONCE ONE Administration ORDERS Category Date Time Status Hand XR left minimum 3 views [XR hand LT min 3V] Stat Exams 02/08/25 09:08 Taken Medical Decision Narrative: In summary patient is a 35-year-old male past medical history of scrota above who presents emergency department for evaluation of digital trauma of his dominant hand. Patient is hemodynamically stable nontoxic-appearing upon arrival, afebrile. Differential includes fracture, musculoskeletal strain, among others. Shared decision making discussion was had at bedside as to digital block with forceful longitudinal traction on the ring to remove it versus cutting the ring off and we will proceed with ring cutting at this time. Plain film will be obtained Tdap will be updated. Plain film informally interpreted by me no acute significant displaced fracture. Hand was cleaned by nursing at bedside and patient is appropriate for outpatient management at this time was put in a finger splint to allow his wound to heal over his dorsal knuckle. He was given return precautions and verbalized understanding. Procedure: Procedure performed was ring removal. Procedure performed by nursing under my direct supervision. Raptor britney ring cutter was placed appropriately on both sides of the ring and ring was cut and subsequently removed. Patient tolerated the procedure well there are no immediate complications. Critical Care Critical Care Time Critical Care Time: No
[2025-02-08] MEDS: TET/DIPHTH/PERT-ADULT 0.5ML SYRINGE 0.5 ML IM (09:23)
[2025-02-08] MEDS: ONDANSETRON 4MG ODT 4 MG SL (09:39)
[2025-02-08] MEDS: ACETAMINOPHEN 500MG TAB 1000 MG PO (09:39)
[2025-02-08] MEDS: IBUPROFEN 400 MG TABLET 800 MG PO (09:40)
[2025-02-08 09:55] VITALS: BP 128/75; PULSE 84; RESP 16; TEMP 36.7; O2SAT 99
== END 2025-02-08 09:59 | disposition home or self-care (01) ==
PROVIDERS: Emergency Provider Emergency Medicine
DX: S61.205A Unspecified open wound of left ring finger without damage to nail, initial encounter (principal); W26.8XXA Contact with other sharp object(s), not elsewhere classified, initial encounter
CPT/HCPCS: 73130; 90471; 90715; 99283; 99284; Q0162

== ENCOUNTER 2025-02-16 16:08 | Emergency (ER) | payer SELFPAY ==
[2025-02-16 16:16] VITALS: BP 121/75; PULSE 79; RESP 15; TEMP 36.5; O2SAT 99; BMI 21.5
--- NOTE | 2025-02-16 16:23 | ED_ITS ---
Discharge Plan Disposition Patient Disposition: Home, Self-Care Prescriptions Prescriptions: No Action cephalexin 500 mg capsule 500 mg PO Q6H 5 Days Qty: 20 0RF penicillin V potassium 500 mg tablet 500 mg PO BID 10 Days Qty: 20 0RF ibuprofen 600 mg tablet 600 mg PO TID Qty: 21 0RF Referrals Follow up/Referrals: Provider,Referral, [Primary Care Provider, Medical] - See instructions Activity Restrictions/Add. Instructions Additional Instructions/Restrictions: Follow-up the results of your nose swab on the patient portal or you can call tomorrow to get the results. you can take 600 mg of ibuprofen and 1000 mg of Tylenol every 6 hours as needed to help with body aches and fever. If you develop any new or worsening symptoms, or if you become concerned for your health for any reason, return to the emergency department for evaluation. Clinical Impressions Clinical Impression: Viral respiratory illness Stand Alone Forms Stand Alone Forms: Work/School Release Print Language Print Language: Mozambican Discharge ED Provider: Christian Carpio General Adult HPI General Chief complaint: Upper Respiratory Infection Stated complaint: drainage,cough, hot and cold, aches Time Seen by Provider: 02/16/25 16:22 Mode of Arrival: Ambulatory Source of Information: Patient Description of Symptoms (Recalled from ER Triage Doc. by RN): Patient complaining of cough, congestion and chills since yesterday. History of Present Illness HPI narrative: Yobani Phillips Jr. is a 35-year-old male with no significant past medical history who presents to the emergency department for complaints of cough, body aches and chills, headache. Patient states that his symptoms started last night. He feels like it is fluctuating hot and cold. He has not taken his temperature. He has not taken any medication for his symptoms. He believes that he has the flu. He does report some shortness of breath but denies any vomiting or diarrhea. He states that he has not been able to get anything up with his cough. Related Data Previous Rx's ?Medication ?Instructions ?Recorded ibuprofen 600 mg tablet 600 mg PO TID #21 tabs 07/01 penicillin V potassium 500 mg 500 mg PO BID 10 days #2 0 tabs 07/01/24 tablet cephalexin 500 mg capsule 500 mg PO Q6H finger wound 5 days 02/08/25 #20 caps Allergies Allergy/AdvReac Type Severity Reaction Status Date / Time No Known Allergies Allergy Verified 02/16/25 16:19 [facility] Disclaimer: The information contained in this section may have been updated after the patient was seen, as this information can be updated by other users. Medical History Seizures Family History (Updated 02/08/25 @ 09:06 by Yesi Jacob RN) Other No significant family history Social History Smoking Status: Current every day smoker alcohol intake: never current occupational status: employed Travel in the last 8 weeks?: None Have you lived/traveled outside [place] in past 30 days?: No Contact w/someone who lives/traveled outside US past 30 days?: No Exposure to someone with infectious disease in past 14 days?: No Do you have a fever (greater than 100.4 F or 38 C)?: No Have you tested positive for COVID-19?: No Exposed to someone with COVID-19 in past 14 days?: No Do you have a sore throat?: No Do you have a cough?: No Do you have any weakness?: No Do you have any diarrhea?: No Are you experiencing any unusual bleeding?: No Do you have any muscle aches/pain?: No Do you have any abdominal pain?: No Are you experiencing loss of taste or smell?: No Other Medical History Have you received the Flu Vaccine for this season: No Have you received the Pneumonia Vaccine: No ROS Obtained: Yes Systems reviewed as appropriate & no additional complaints except as documented Physical Exam General General appearance: alert and in no apparent distress Comment: No-toxic appearing Head Head exam: atraumatic Eye Eye exam: Present normal appearance ENT ENT exam: Present normal external ear exam Neck Neck exam: Present full ROM Chest Chest inspection: Present symmetric chest wall rise Respiratory Respiratory exam: Present normal lung sounds bilaterally and other (dry cough); Absent respiratory distress, wheezes or stridor Cardiovascular Cardiovascular exam: Present regular rate and normal rhythm Abdominal Exam Abdominal exam: Present soft; Absent tenderness or guarding exam: Present deferred Extremities Exam Extremities exam: Present normal inspection Back Exam Back exam: Present normal inspection Neurological Exam Neurological exam: Present alert and oriented X3 Psychiatric Psychiatric exam: Present normal affect Skin Skin exam: Present warm and dry Medical Decision Making Medical Records Screening: Per USPSTF and CDC recommendations, given the prevalence of disease in our region, it is our hospital?s policy to screen for HIV and viral Hepatitis for all patients aged 18 and over and those with ongoing risk factors. Rajinder Inquiry Pt receiving controlled substance: No Vital Signs: 02/16/25 16:16 Temperature 97.7 F Temperature Source Oral Pulse Rate [Right Brachial] 79 Respiratory Rate 15 Blood Pressure [Right Arm] 121/75 Blood Pressure Mean [Right Arm] 90 Blood Pressure Source [Right Arm] Automatic Cuff Blood Pressure Position [Right Arm] Sitting 02 Sat by Pulse Oximetry 99 Oxygen Delivery Method Room Air Orders (Tests/Meds): ED MEDICATIONS Discontinued Medications Generic Name Dose Route Start Last Admin Trade Name Freq PRN Reason Stop Dose Admin Acetaminophen 1,000 mg 02/16/25 16:32 02/16/25 16:37 Acetaminophen 500mg Tab PO 02/16/25 16:33 1,000 mg ONCE ONE Administration Ibuprofen 600 mg 02/16/25 16:32 02/16/25 16:37 Ibuprofen 600 Mg Tablet PO 02/16/25 16:33 600 mg ONCE ONE Administration ORDERS Category Date Time Status CXR 2 view (NOT portable) [XR chest 2V] Stat Exams 02/16/25 16:28 Taken Mini Respiratory Panel Stat Lab 02/16/25 16:20 Ordered Medical Decision Narrative: Yobani Phillips Jr. is a 35-year-old male with no significant past medical history who presents to the emergency department for complaints of cough, body aches and chills, headache. Patient states that his symptoms started last night. He feels like it is fluctuating hot and cold. He has not taken his temperature. He has not taken any medication for his symptoms. He believes that he has the flu. He does report some shortness of breath but denies any nausea, vomiting or diarrhea. He states that he has not been able to get anything up with his cough. On arrival, patient is normotensive, heart within normal limits, afebrile, oxygen saturation 99% on room air. Physical exam, as stated above, reveals an overall nontoxic-appearing male. He has a dry cough. Cardiopulmonary Silverio is unremarkable without murmurs or rubs. No wheezing, rales or rhonchi. The remainder of the physical exam is grossly unremarkable. Differential diagnosis includes, but is not limited to: Viral respiratory illness (COVID/flu, among others), pneumonia, low concern for cardiac etiology as patient's symptomatology is most consistent with viral etiology. Will obtain mini respiratory panel and chest x-ray to rule out pneumonia. Chest x-ray interpreted by me personally. No focal consolidation, no pneumo thorax, no widened mediastinum, no enlargement of the cardiac silhouette. Unremarkable chest x-ray. See radiology report for details. Will follow-up formal radiology report when available. On reassessment, patient's respiratory panel is pending, however is unlikely to change ED management. Will recommend Tylenol and ibuprofen and continued hydration as patient's symptomatology is most consistent with viral etiology. Instructed patient to follow-up patient's respiratory panel on patient portal or to call the hospital for results. Return precautions were given. All questions were answered. He demonstrated understanding and was in agreement with this plan. He was then discharged from the emergency department in stable condition. Critical Care Critical Care Time Critical Care Time: No
--- NOTE | 2025-02-16 16:28 | XR_ITS ---
PROCEDURE INFORMATION: Exam: XR Chest Exam date and time: 02/16/2025 4:21 PM Age: 35 years old Clinical indication: Shortness of breath TECHNIQUE: Imaging protocol: Radiologic exam of the chest. Views: 2 views. COMPARISON: CR CXR2V XR chest 2V 02/18/2018 8:13 PM FINDINGS: Lungs: Unremarkable. No consolidation. Pleural spaces: Unremarkable. No pleural effusion. No pneumothorax. Heart/Mediastinum: Unremarkable. No cardiomegaly. Bones/joints: Unremarkable. IMPRESSION: No acute findings.
[2025-02-16] MEDS: ACETAMINOPHEN 500MG TAB 1000 MG PO (16:37)
[2025-02-16] MEDS: IBUPROFEN 600 MG TABLET PO (16:37)
[2025-02-16 16:59] LABS: Coronavirus 19, PCR Not Detected (NotDetected); Influenza A, PCR Not Detected (NotDetected); Influenza B, PCR Not Detected (NotDetected)
[2025-02-16 17:05] VITALS: BP 121/95; PULSE 79; RESP 16; TEMP 36.6; O2SAT 99
== END 2025-02-16 17:06 | disposition home or self-care (01) ==
PROVIDERS: Emergency Provider Student in an Organized Health Care Education/Training Program
DX: R51.9 Headache, unspecified (principal); R05.9 Cough, unspecified; B34.9 Viral infection, unspecified; F17.210 Nicotine dependence, cigarettes, uncomplicated
CPT/HCPCS: 71046; 87631; 99282; 99283

== ENCOUNTER 2025-03-01 07:02 | Emergency (ER) | payer SELFPAY ==
[2025-03-01 07:03] VITALS: BP 117/89; PULSE 87; RESP 17; TEMP 36.6; O2SAT 98; BMI 22.1
--- NOTE | 2025-03-01 07:44 | ED_ITS ---
Discharge Plan Disposition Patient Disposition: Home, Self-Care Prescriptions Prescriptions: New hydrocodone-acetaminophen 5-325 mg tablet 1 tab PO Q6H PRN (Reason: pain) 3 Days Qty: 12 0RF No Action cephalexin 500 mg capsule 500 mg PO Q6H 5 Days Qty: 20 0RF penicillin V potassium 500 mg tablet 500 mg PO BID 10 Days Qty: 20 0RF ibuprofen 600 mg tablet 600 mg PO TID Qty: 21 0RF Referrals Follow up/Referrals: Provider,Referral, MD [Primary Care Provider, Medical] - See instructions Activity Restrictions/Add. Instructions Additional Instructions/Restrictions: You have a superficial corneal abrasion and a foreign body that was in your cornea that was removed. Please take your ophthalmic antibiotic solution 2 drops in the affected eye 4 times a day over the next 7 days. Follow-up with the eye doctor in 4872 hours if you are not improving. Please call Dr. Fisher for an appointment. Clinical Impressions Clinical Impression: Acute foreign body of cornea, Corneal abrasion Print Language Print Language: Croatian Discharge ED Provider: Trevon Suarez General Adult HPI General Chief complaint: Eye Problems Stated complaint: L eye redness, swollen, burning Time Seen by Provider: 03/01/25 07:07 Mode of Arrival: Ambulatory Source of Information: Patient Description of Symptoms (Recalled from ER Triage Doc. 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 Had a foreign body several years ago and states that it feels similar today. Denies not wearing any eye protection. States this is not photokeratitis which she has had multiple times in the past. Related Data Previous Rx's ?Medication ?Instructions ?Recorded ibuprofen 600 mg tablet 600 mg PO TID #21 tabs 07/01 penicillin V potassium 500 mg 500 mg PO BID 10 days #2 0 tabs 07/01/24 tablet cephalexin 500 mg capsule 500 mg PO Q6H finger wound 5 days 02/08/25 #20 caps hydrocodone 5 mg-acetaminophen 325 1 tab PO Q6H PRN pa in 3 days #12 03/01/25 mg tablet tabs Allergies Allergy/AdvReac Type Severity Reaction Status Date / Time No Known Allergies Allergy Verified 02/16/25 16:19 [facility] Disclaimer: The information contained in this section may have been updated after the patient was seen, as this information can be updated by other users. Medical History Seizures Family History (Updated 02/08/25 @ 09:06 by Yesi Jacob RN) Other No significant family history Social History Smoking Status: Current every day smoker alcohol intake: never current occupational status: employed Travel in the last 8 weeks?: None Have you lived/traveled outside US in past 30 days?: No Contact w/someone who lives/traveled outside US past 30 days?: No Exposure to someone with infectious disease in past 14 days?: No Do you have a fever (greater than 100.4 F or 38 C)?: No Have you tested positive for COVID-19?: No Exposed to someone with COVID-19 in past 14 days?: No Do you have a sore throat?: No Do you have a cough?: No Do you have any weakness?: No Do you have any diarrhea?: No Are you experiencing any unusual bleeding?: No Do you have any muscle aches/pain?: No Do you have any abdominal pain?: No Are you experiencing loss of taste or smell?: No Other Medical History Have you received the Flu Vaccine for this season: No Have you received the Pneumonia Vaccine: No ROS Obtained: Yes All systems reviewed & no additional complaints except as documented Physical Exam General General appearance: alert Eye Eye exam: Present normal appearance, PERRL, conjunctival redness and other (With fluorescein uptake stain there is no obvious corneal abrasion or evidence of any globe injury) Expanded Eye Exam Slit lamp exam: performed Both Eyes Image: 2 1. corneal FB, no rust ring Respiratory Respiratory exam: Present normal lung sounds bilaterally Cardiovascular Cardiovascular exam: Present regular rate Neurological Exam Neurological exam: Present alert and oriented X3 Medical Decision Making Medical Records Screening: Per USPSTF and CDC recommendations, given the prevalence of disease in our region, it is our hospital?s policy to screen for HIV and viral Hepatitis for all patients aged 18 and over and those with ongoing risk factors. Rajinder Inquiry Pt receiving controlled substance: No Vital Signs: 03/01/25 07:03 Temperature 97.9 F Temperature Source Oral Pulse Rate [Left Radial] 87 Respiratory Rate 17 Blood Pressure [Right Arm] 117/89 Blood Pressure Mean [Right Arm] 98 Blood Pressure Source [Right Arm] Automatic Cuff Blood Pressure Position [Right Arm] Sitting 02 Sat by Pulse Oximetry 98 Oxygen Delivery Method Room Air Medical Decision Narrative: Patient with above history and physical. Had some resolution of symptoms with tetracaine is most likely a superficial corneal abrasion with associated foreign body. Foreign body was successfully removed using slit-lamp and was performed at the bedside. Patient given topical Neosporin ophthalmic solution. Advised to take this over the next week and to follow-up with an eye doctor in 24 to 48 hours if he is not showing signs of improvement. Pain medicine prescribed as well. Procedures Miscellaneous Procedure Procedure Performed: Corneal foreign body removal Indication corneal foreign body Foreign body was identified using slit-lamp patient was placed in the supine position in the bed after tetracaine administration 18-gauge side of the bevel was used to dislodge the foreign body that was subsequently removed using a cotton tip applicator. Patient did jump in the middle of the procedure causing the needle to superficially nicked the upper aspect of the eyelid and caused a small amount of bleeding which did not persist. No evidence of any globe injury or any significant ocular injury. Patient tolerated procedure otherwise well. Critical Care Critical Care Time Critical Care Time: No
[2025-03-01] MEDS: TETRACAINE 0.5% OPTH SOL 15ML OP (08:00)
[2025-03-01] MEDS: FLUORESCEIN SODIUM 1MG STRIP 1 MG OP (08:10)
[2025-03-01 08:13] VITALS: BP 117/89; PULSE 87; RESP 18; TEMP 36.6; O2SAT 98
[2025-03-01] MEDS: GENTAMICIN 0.3% OPTH SOL 5ML OP (08:15)
== END 2025-03-01 08:15 | disposition home or self-care (01) ==
PROVIDERS: Emergency Provider Student in an Organized Health Care Education/Training Program
DX: T15.02XA Foreign body in cornea, left eye, initial encounter (principal); W44.9XXA Unspecified foreign body entering into or through a natural orifice, initial encounter
CPT/HCPCS: 65222; 99283